=== PATIENT | female | born 1965 | race Caucasian/White ===

== ENCOUNTER 2016-05-26 21:04 | Emergency (ER) | payer OTHER ==
[~2016-05-26] VITALS: Ht 154.9 cm; Wt 79.4 kg
[~2016-05-26 21:04] MED LIST: ALPRAZOLAM0.5 M4 PO; AMOXICILLIN500 MG PO; AUGMENTIN 875 M1 TAB PO; BACTRIM DS 8001 TAB PO; BUPROPION HYDR300 M1 PO; CARAFATE 1GM1000 MG PO; CHLORDIAZEPOXID25 M3 PO; CLINDAMYCIN HY300 MG PO; CYANOCOBAL1000 MCG/2 IM; CYCLOBENZAPRINE5 M2 PO; DOCUSATE SODIU100 MG PO; DULOXETINE HCL30 MG PO; FOLIC ACID1 M1 PO; GABAPENTIN300 M1 PO; GABAPENTIN300 M2 PO; HUMALOG 100U100 U/ML SC; KEFLEX500 MG PO; LEVEMIR 10100 UNITS/ SC; LEVOTHROID0.175 MG PO; LEVOTHYROXINE0.15 M1 PO; LEVOTHYROXINE150 MCG PO; LISINOPRIL10 MG PO; LISINOPRIL30 M1 PO; LOVENOX 4040 MG/0.4 SC; METAXALONE800 M1 PO; MOTRIN800 MG PO; NEURONTIN100 MG PO; NEURONTIN300 MG PO; NOVOLOG100 U/ML SC; NUCYNTA50 M1 PO; NUCYNTA50 MG PO; OXYCODONE5 M1 PO; PERCOCET 325 MG1 TA2 PO; PRAVASTATIN40 MG PO; PRILOSEC OTC20 MG PO; PRISTIQ100 MG PO; TERBINAFINE HY250 MG PO; THIAMINE HCL100 M1 PO; TRAMADOL HCL50 MG PO; TRAZODONE HCL50 M1 PO; TRAZODONE100 MG PO; ULTRAM(MONOGRAP50 MG PO; V-GO SC; VICODIN 300 MG-1 TAB PO; VICODIN 5-3001 EACH PO; VITAMIN D1000 IU PO; XANAX1 MG PO; ZOFRAN ODT4 MG PO; ZOFRAN ODT4 MG SL
[2016-05-26 21:10] VITALS: BP 154/103
--- NOTE | 2016-05-26 21:43 | ED EAR COMPLAINT ---
History of Present Illness General Chief Complaint: Ear Complaints Stated Complaint: EAR INFECTION, WENT TO WALKIN, WORSE,CRYING Source: patient, old records Exam Limitations: no limitations Vital Signs & Intake/Output Vital Signs & Intake/Output Vital Signs Date Time Temp Pulse Resp B/P Pulse O2 O2 Flow FiO2 Ox Delivery Rate 05/26 2140 Room Air 05/26 2109 98.3 119 22 154/103 96 Room Air Allergies Coded Allergies: No Known Allergies (01/27/16) Reconcile Medications Alprazolam 0.5 MG TABLET 1 TAB PO PRN ANXIETY (Reported) Chlordiazepoxide HCl 25 MG CAPSULE 2 CAP PO Q8P ETOH 2 TABS 3 TIMES DAILY FOR 1 DAY 2 TABS 2 TIMES DAILY FOR 1 DAY 2 TABS DAILY FOR 1 DAY Cyanocobalamin (Vitamin B-12) (Cyanocobalamin Injection) 1,000 MCG/ML VIAL 1 ML IM Q30D SUPPLEMENT (Reported) Duloxetine HCl 60 MG CAPSULE.DR 1 CAP PO DAILY MENTAL HEALTH (Reported) Folic Acid 1 MG TABLET 1 TAB PO DAILY ETOH Gabapentin 300 MG CAPSULE 1 CAP PO 4 TIMES/DAY NEUROPATHY/ANXIETY (Reported) Insulin Lispro (Humalog) 100 UNIT/ML VIAL 0 SC DIABETES (Reported) HUMALOG VIA PUMP Levothyroxine Sodium 150 MCG TABLET 1 TAB PO DAILY THYROID (Reported) Lisinopril 30 MG TABLET 1 TAB PO DAILY BP (Reported) Metaxalone 800 MG TABLET 1 TAB PO TID MUSCLE SPASMS (Reported) Oxycodone HCl/Acetaminophen (Percocet 5-325 MG Tablet) 5 MG-325 MG TABLET 1 TAB PO BID PRN breakthrough pain Pravastatin Sodium (Pravastatin) 40 MG TAB 1 TAB PO AT BEDTIME HYPERCHOLESTROLEMIA (Reported) Tapentadol HCl (Nucynta) 50 MG TABLET 1 TAB PO 4 TIMES/DAY PAIN (Reported) Thiamine HCl 100 MG TABLET 1 TAB PO DAILY ETOH Trazodone HCl 50 MG TABLET 1 TAB PO PRN SLEEP (Reported) Triage Note: PT TO ED C/O RT EAR PAIN, SOBIING IN TRIAGE, IN WHEELCHAIR. DIAGNOSED AT AT WALKIN YESDTERDAY. IS TAKING AUGMENTIN. TYLENOL NOT HELPING. ALSO TOOK SOME OF "ORTHOPEDIC PAIN MEDICATION" Triage Nurses Notes Reviewed? yes Onset: Abrupt Duration: day(s): (2), constant Timing: recent history Injury Environment: home Severity: severe Severity Numbers: 10 No Modifying Factors: none Associated Symptoms: DENIES HPI: 50-year-old female presents emergency room for evaluation complaining of right ear throbbing severe pain 10 out of 10 since yesterday when she was diagnosed with a right ear infection was started on Augmentin. She's been taking Tylenol for her pain without improvement. She denies recent trauma or injury. No tinnitus no dizziness lightheadedness fever or chills no sore throat congestion rhinorrhea chest pain shortness of breath. She denies noting any rashes to her skin or scalp. No swelling to her ear no neck or throat pain. There are no modifying factors or associated symptoms otherwise Past History Travel History Traveled to [place] past 21 day No Medical History Any Pertinent Medical History? 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 No Review of Systems Review of Systems Constitutional: Reports: no symptoms, see HPI. All Other Systems: Reviewed and Negative Comments Review of systems: See HPI, All other systems negative. Constitutional, no chills no fever, no malaise no weight loss HEENT: no sore throat no congestion, ear pain Cardiovascular: No chest pain , no palpitation , Skin, no jaundice no rashes, no change in skin Respiratory: No dyspnea no cough no sputum no hemoptysis GI: No nausea no vomiting, no diarrhea, no bloating/constipation : No dysuria No hematuria, no frequency, no discharge Muscle skeletal: No joint pain, no joint swelling, no back pain, no neck pain, Neurologic: No numbness no confusion, no headache Psych: No stress Heme/endocrine: No bruising no bleeding Immunology: No lymphadenopathy, Physical Exam Physical Exam General Appearance: well developed/nourished, alert, awake Ears: Left: canal normal. Comments: Well-developed well-nourished patient in no apparent distress. Head/Face: Atraumatic, no maxillary/frontal sinus tenderness, no facial swelling Eyes: PERRL, EOMI, no conjunctival injection. No nystagmus Ear: RM EAC ERYTHEMATOUS, NO PERFORATIONLEFT External auditory canal and Tympanic membrane clear, no erythema, no FB. Nose: atraumatic.Normal inspection Throat: Moist mucous membranes.Pharynx normal. No pharyngeal erythema/exudate seen. No stridor/drooling or assymetry. No swelling or edema. Neck: Supple, no lymphadenopathy, FROM Back: FROM, Nontender Cardiovascular: Regular rate and rhythms no murmurs rubs Respiratory: No respiratory distress. Patient speaking in full complete sentences. Breath sounds clear to auscultation bilaterally: NO W/R/R Extremities: full range of motion Neuro: Alert and oriented x3 Skin: Warm & dry;No appreciable rash on exposed skin Psych: Mood affect normal, normal memory normal judgment. Progress Differential Diagnoses DIFFERENTIAL: OTITIS MEDIA, EXTERNA, MASTOIDITIS, CELLULITIS, PERFORATION, SHINGLES Plan of Care: Current Medications Sig/Regine Start time Last Medication Dose Stop Time Status Admin Oxycodone/ 1 TAB ONCE ONE 05/26 2214 UNVr Acetaminophen 05/26 2215 (Percocet) There is no rash exposed skin I discussed with her that the patient is on the correct antibiotic she is only taken one day dose. Prescription for Percocet provided for pain and advised close follow-up with ENT which was provided they feel comfortable with plan. I discussed the medications that they will receive with the patient. I gave them signs and symptoms that could indicate an adverse reaction. I have advised them to limit their activities until they can see how they respond to the medication. (SADIE ALMAZAN,MORE) Initial ED EKG: none Departure Departure Time of Disposition: 2207 Disposition: HOME OR SELF CARE Condition: Stable Clinical Impression Primary Impression: Otitis media Referrals: URBAN CARO,HILLARY (PCP/Family) Additional Instructions: Continue taking your Augmentin as prescribed. Follow-up with ear nose and throat physician dr dockery tomorrow. percocet for breakthrough pain. use caution as is a narcotic and highly addictive no driving or drinking alcohol while taking. This prescription was sent to the your pharmacy. Return anytime sooner if any concerns Departure Forms: Customer Survey General Discharge Information Prescriptions: Current Visit Scripts Oxycodone HCl/Acetaminophen (Percocet 5-325 MG Tablet) 1 TAB PO BID PRN breakthrough pain #10 TAB
[2016-05-26] MEDS ORDERED: PERCOCET 5-3251 EACH PO (22:09)
== END 2016-05-26 22:15 ==
LOC: ERH 21:04
DX: H66.91 Otitis media, unspecified, right ear (principal)

== ENCOUNTER 2016-05-29 06:59 | Inpatient (IN) | payer OTHER ==
[~2016-05-29] VITALS: Ht 154.9 cm; Wt 79.4 kg
[~2016-05-29 06:59] MED LIST changes: +PERCOCET 5-3251 EACH PO
--- NOTE | 2016-05-29 07:04 | NUR ---
PT BIBA FROM HOME WITH COMPLAINTS OF R EAR PAIN, N,V AND ONE LOOSE STOOL THIS MORNING. PT HAS BEEN ON AUGMENTIN SINCE WEDNESDAY FOR R EAR INFECTION. PT ALERT AND ORIENTED UPON ED ARRIVAL.
--- NOTE | 2016-05-29 07:51 | ED GI/GU/ABDOMINAL COMPLAINT ---
History of Present Illness General Chief Complaint: Nausea, Vomiting, Diarrhea Stated Complaint: N,V Source: patient, old records Exam Limitations: poor historian Vital Signs & Intake/Output Vital Signs & Intake/Output Vital Signs Date Time Temp Pulse Resp B/P Pulse O2 O2 Flow FiO2 Ox Delivery Rate 05/29 0940 113 20 144/91 100 Room Air 05/29 0705 98.3 109 18 164/77 99 Room Air Allergies Coded Allergies: No Known Allergies (01/27/16) Reconcile Medications Alprazolam 0.5 MG TABLET 1 TAB PO PRN ANXIETY (Reported) Chlordiazepoxide HCl 25 MG CAPSULE 2 CAP PO Q8P ETOH 2 TABS 3 TIMES DAILY FOR 1 DAY 2 TABS 2 TIMES DAILY FOR 1 DAY 2 TABS DAILY FOR 1 DAY Cyanocobalamin (Vitamin B-12) (Cyanocobalamin Injection) 1,000 MCG/ML VIAL 1 ML IM Q30D SUPPLEMENT (Reported) Duloxetine HCl 60 MG CAPSULE.DR 1 CAP PO DAILY MENTAL HEALTH (Reported) Folic Acid 1 MG TABLET 1 TAB PO DAILY ETOH Gabapentin 300 MG CAPSULE 1 CAP PO 4 TIMES/DAY NEUROPATHY/ANXIETY (Reported) Insulin Lispro (Humalog) 100 UNIT/ML VIAL 0 SC DIABETES (Reported) HUMALOG VIA PUMP Levothyroxine Sodium 150 MCG TABLET 1 TAB PO DAILY THYROID (Reported) Lisinopril 30 MG TABLET 1 TAB PO DAILY BP (Reported) Metaxalone 800 MG TABLET 1 TAB PO TID MUSCLE SPASMS (Reported) Oxycodone HCl/Acetaminophen (Percocet 5-325 MG Tablet) 5 MG-325 MG TABLET 1 TAB PO BID PRN breakthrough pain Pravastatin Sodium (Pravastatin) 40 MG TAB 1 TAB PO AT BEDTIME HYPERCHOLESTROLEMIA (Reported) Tapentadol HCl (Nucynta) 50 MG TABLET 1 TAB PO 4 TIMES/DAY PAIN (Reported) Thiamine HCl 100 MG TABLET 1 TAB PO DAILY ETOH Trazodone HCl 50 MG TABLET 1 TAB PO PRN SLEEP (Reported) Triage Note: PT BIBA FROM HOME WITH COMPLAINTS OF R EAR PAIN, N,V AND ONE LOOSE STOOL THIS MORNING. PT HAS BEEN ON AUGMENTIN SINCE WEDNESDAY FOR R EAR INFECTION. PT ALERT AND ORIENTED UPON ED ARRIVAL. Triage Nurses Notes Reviewed? yes ? n Is pt currently ? No HPI: Patient presents for evaluation of abdominal pain that began yesterday. It is an intermittent sharp pain in the periumbilical region. Nothing seems to make it better or worse. Patient states that she was evaluated at the [facility] emergency Department on Wednesday and diagnosed with an ear infection. She is currently taking Augmentin for this. She thinks the Augmentin might be affecting her. She has had nausea without associated vomiting or diarrhea. She also denies chest pain dysuria ill contacts or recent travel or rashes. She has had "a little" dyspnea over the past 2 days. The patient often states she is unable to describe how she feels specifically and often states "I can't think". She has asked repeatedly for something to drink due to a burning dry mouth. Patient also states that her earache continues. Past History Travel History Traveled to [facility] past 21 day No Medical History Any Pertinent Medical History? 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 No Review of Systems Review of Systems Constitutional: Reports: no symptoms. EENTM: Reports: see HPI. Respiratory: Reports: no symptoms. Cardiovascular: Reports: no symptoms. GI: Reports: see HPI. Genitourinary: Reports: no symptoms. Musculoskeletal: Reports: no symptoms. Skin: Reports: no symptoms. Neurological/Psychological: Reports: no symptoms. Hematologic/Endocrine: Reports: no symptoms. Immunologic/Allergic: Reports: no symptoms. All Other Systems: Reviewed and Negative Physical Exam Physical Exam Gastrointestinal: SEE BELOW Comments: Gen.: Well-nourished, well-developed, no acute respiratory distress. Uncomfortable appearing at times. Head: Normocephalic, atraumatic. Eyes: Normal inspection bilaterally Ears: Normal inspection bilaterally Nose: Normal inspection Throat/mouth : Moist mucosa Neck: Supple, full range of motion, no goiter Heart: Regular rate and rhythm, no murmurs rubs or gallops Lungs: Clear to auscultation bilaterally with normal air entry Chest: Nontender Back: Normal range of motion Abdomen: Soft, periumbilical abdominal tenderness without rebound or guarding, no palpable masses, nondistended, normal bowel sounds Extremities: Normal range of motion grossly, equal radial pulses, no cyanosis clubbing or edema Neurologic: Cranial nerves grossly intact, speech is clear Skin: warm and dry, chronic skin changes of the anterior legs bilaterally patient states secondary to diabetes Psychiatric: Calm, cooperative, no apparent delusions or hallucinations Core Measures ACS in differential dx? No Severe Sepsis Present: No Septic Shock Present: No Progress Differential Diagnosis: GASTROENTERITIS, MEDICATION SIDE EFFECT Plan of Care: Orders Procedure Date/time Status MIXED VENOUS BLOOD GAS (GEN) 05/29 1142 Active Patient Data 05/29 1141 Active Admit to inpatient 05/29 1136 Active EKG 05/29 1059 Active Add-on Test (ER Only) 05/29 0939 Active SERUM OSMOLALITY 05/29 0935 Complete ACETONE 05/29 0935 Complete C.DIFFICILE 05/29 0751 Active URINALYSIS 05/29 0751 Complete LIPASE 05/29 0751 Complete COMPREHENSIVE METABOLIC PANEL 05/29 0751 Complete CBC WITHOUT DIFFERENTIAL 05/29 0751 Complete Laboratory Tests 05/29/16 0935: Anion Gap 22 H, Estimated GFR > 60, BUN/Creatinine Ratio 22.2, Glucose 471 H, Serum Osmolality 302 H, Calcium 9.6, Total Bilirubin 0.9, AST 21, ALT 64 H, Alkaline Phosphatase 174 H, Total Protein 7.2, Albumin 4.3, Globulin 2.9, Albumin/Globulin Ratio 1.5, Lipase < 10 L, Acetone Level POSITIVE AT 1:16 DIL 05/29/16 0840: Urinalysis LIGHT H, Urine Color YEL, Urine Clarity CLEAR, Urine pH 6.0, Ur Specific [place] >= 1.030, Urine Protein TRACE H, Urine Ketones >=80, Urine Nitrite NEG, Urine Bilirubin NEG, Urine Urobilinogen 0.2, Ur Leukocyte Esterase NEG, Ur Microscopic SEDIMENT EXAMINED, Urine RBC RARE, Urine WBC RARE, Ur Epithelial Cells MOD H, Hyaline Casts RARE H, Urine Mucus RARE, Urine Hemoglobin MOD H, Urine Glucose >=1000 H 05/29/16 0740: CBC w Diff NO MAN DIFF REQ, RBC 5.03, MCV 82.3, MCH 26.9 L, RDW 16.9 H, MPV 8.9, Gran % 88.2 H, Lymphocytes % 8.6 L, Monocytes % 2.7, Eosinophils % 0, Basophils % 0.5, Absolute Granulocytes 10.9 H, Absolute Lymphocytes 1.1 L, Absolute Monocytes 0.3, Absolute Eosinophils 0, Absolute Basophils 0.1, PUBS MCHC 32.7 L Microbiology 05/29 0751 STOOL: Clostridium difficile Toxin A & B - ORD Initial ED EKG: no ST T wave changes, sinus tachycardia with a ventricular rate of 110 Comments: 05/29/2016 9:43:27 AM although the patient's chemistries aren't back her urinalysis shows glucose and ketones. I suspect DKA. IV fluids are infusing. Patient updated. 05/29/2016 11:48:13 AM patient's case discussed with Dr. Pittman, patient will be admitted to the intensive care unit for DKA. We have discussed the patient's potassium level and its likely response to insulin and fluids. Departure Departure Disposition: STILL A PATIENT Condition: Stable Clinical Impression Primary Impression: DKA (diabetic ketoacidoses) Qualifiers: Diabetes mellitus type: type 1 Diabetes mellitus complication detail: without coma Qualified Code: E10.10 - Type 1 diabetes mellitus with ketoacidosis without coma Secondary Impressions: Hyperkalemia Hyponatremia Otitis externa of right ear Qualifiers: Otitis externa type: swimmer's ear Chronicity: acute Qualified Code : H60.331 - Swimmer's ear, right ear Referrals: HILLARY DUGGAN MD (PCP/Family) Departure Forms: Customer Survey General Discharge Information Admission Note Spoke With: Robe NIELSON MD Documentation of Exam: Documentation of any treatments & extenuating circumstances including Concerns Regarding Discharge (functional status, medication knowledge or non-compliance, living conditions, etc.) that warrant an admission rather than observation: Patient is experiencing acute DKA with hyponatremia and hyperkalemia and acidosis. She cannot be treated safely as an outpatient now requires intensive care with an IV insulin drip and close monitoring of vital signs potassium levels and blood glucose. In addition she is experiencing a right otitis media that should be treated with either PO antibiotics or antibiotic drops into the canal. Given the extent of the patient's DKA and complicating ear infection I suspect she will require a multiple day hospitalization. Critical Care Note Critical Care Note Critical Care Time: 30-74 min
[2016-05-29 08:01] LABS: ABSOLUTE BASOPHIL COUNT 0.1 /CUMM (0.0-0.2); ABSOLUTE EOSINOPHIL COUNT 0 /CUMM (0.0-0.7); ABSOLUTE GRANULOCYTE CT 10.9 /CUMM (1.4-6.5); ABSOLUTE LYMPH COUNT 1.1 /CUMM (1.2-3.4); ABSOLUTE MONOCYTE COUNT 0.3 /CUMM (0.10-0.60); BASOPHIL % 0.5 % (0.0-2.0); EOSINOPHIL % 0 % (0-5); HEMATOCRIT 41.4 % (37-47); MEAN CORPUSCULAR HGB 26.9 PG (27.0-31.0); MEAN CORPUSCULAR HGB CONC 32.7 G/DL (33.0-37.0); MEAN CORPUSCULAR VOLUME 82.3 FL (81.0-99.0); MEAN PLATELET VOLUME 8.9 FL (7.4-10.4); RBC DISTRIBUTION WIDTH 16.9 % (11.5-14.5); RED BLOOD CELL CT 5.03 /CUMM (4.20-5.40); WHITE BLOOD CELL COUNT 12.4 /CUMM (4.8-10.8)
--- NOTE | 2016-05-29 08:02 | NUR ---
PT CONTINUING TO ASKING REPEATIVELY FOR "I NEED SOMETHING TO DRINK". DR LOUIS IN TO EVAL, PT TO STAY NPO AT THIS TIME, DUE TO NAUSEA AND C/O ABD PAIN. BLOODWORK SST,BLUE,LAV,SEQUEIRA AND PINK TOP TUBES SENT TO LAB. MED WITH PHENERGAN 12.5MG IV AND IVF'S NS 1L BOLUS INFUSING WITHOUT DIFFICULTY AT THIS TIME. PT AWARE OF NEED FOR URINE SPECIMEN AND STOOL SPECIMEN WHEN ABLE TO PROVIDE.
[2016-05-29 08:13] LABS: GRANULOCYTE % 88.2 % (42.2-75.2); PLATELET COUNT 478 /CUMM (130-400)
--- NOTE | 2016-05-29 09:37 | NUR ---
REDRAW OF SST AND SEQUEIRA DRAWN AND SENT TO LAB.
--- NOTE | 2016-05-29 09:55 | NUR ---
NEED REDRAW OF SST. LAB ASKED TO COME AND DRAW PT.
--- NOTE | 2016-05-29 10:19 | NUR ---
CRITICAL TEST RESULTS [id number] NIMCO VALDEZ 50 F TESTS AND RESULTS: POTASSIUM: 6.2, CO2: 6 Results received and read back by: DEONDRE TEMPLETON Results received date and time: 05/29/16 1019 The following provider was notified of the results, and read the results back: DR LOUIS. Notified date and time: 05/29/16 at 1019
--- NOTE | 2016-05-29 10:21 | NUR ---
PT ASKING FOR SOMETHING FOR RIGHT EAR PAIN, DR LOUIS AWARE. PARENTS NOW AT BEDSIDE.
--- NOTE | 2016-05-29 10:30 | NUR ---
PT TAKING 2 CUPS OF ICE CHIPS NO FURTHER VOMITING NOTED.
--- NOTE | 2016-05-29 10:49 | NUR ---
PT WITH MULTIPLE COMPLAINTS, DR LOUIS AWARE.
--- NOTE | 2016-05-29 11:40 | NUR ---
MED WITH REGULAR INSULIN 10 UNITS SC, INSULIN DRIP: 100 UNITS REGULAR INSULIN IN 100ML NS AT 5UNITS/HR=5ML/HR ORDERED, PT REMOVED OMNI INSULIN FROM OUTER UPPER LEFT THIGH. PT ASSIST TO BEDSIDE COMMODE, WITH MINIMAL ASSIST, TOLERATED VERY WELL.
[2016-05-29] MEDS ORDERED: CHLORDIAZEPOXID25 M3 PO (11:54)
--- NOTE | 2016-05-29 12:40 | NUR ---
HOUSE STAFF AT BEDSIDE FOR EVAL. ACCCHECK: [id number] HOUSE STAFF AWARE, IVF'S NS 1L BOLUS # 2 INFUSING ORDERED, INSULIN DRIP CONTINUES AT 5 UNITS/5ML/HR.
--- NOTE | 2016-05-29 12:50 | NUR ---
MED WITH ZOFRAN 4MG IV FOR RETURNING C/O NAUSEA, MED WITH MORPHINE 2MG IV FOR C/O "ALL OVER BODY ACHES". PARENTS REMAIN AT BEDSIDE. AWAITING ICU BED ASSIGNMENT.
--- NOTE | 2016-05-29 13:01 | History & Physical ---
IBAN CARO,[facility] 05/29/16 1259: General Information and HPI MD Statement: I have seen and personally examined NIMCO GRULLON and documented this H&P. The patient is a 50 year old F who presented with a patient stated chief complaint of [dominant pain and right ear pain]. Source of Information: patient, family, old records Exam Limitations: no limitations History of Present Illness: 50/F with PMH DM (on insulin pump) complicated by Neuropathy, HTN, HLD, depression and alcohol abuse (last drink was ) who presented to [facility] earlier today complaining of epigastric abdominal pain that started yesterday. She was seen in the walk in clinic 3 days ago because of throbbing, 12/10, right ear pain. She was diagnosed as otitis media and sent home on Augmentin. The day after that she came to [facility] ED and she was told to continue same Augmentin dose. Patient reported that because of her sickness she was not eating well and for that reason she was not taking daily insulin dose to avoid hypoglycemia. Patient reported that for the last 4 days her sugar has been running around 300.\\ She reported right ear pain, ear discharge, decreased hearing. Patient also reported epigastric abdominal pain, that feel as a burning and radiated to substernal. She started to have this burning sensation after she threw up on bloody yellow fluid in the ED. complaint of fever and throat pain however denies chills, cough, chest pain, or nasal drip. Allergies/Medications Allergies: Coded Allergies: No Known Allergies (01/27/16) Home Med list Chlordiazepoxide HCl 25 MG CAPSULE 2 CAP PO Q8P ETOH 2 TABS 3 TIMES DAILY FOR 1 DAY 2 TABS 2 TIMES DAILY FOR 1 DAY 2 TABS DAILY FOR 1 DAY Cyanocobalamin (Vitamin B-12) (Cyanocobalamin Injection) 1,000 MCG/ML VIAL 1 ML IM Q30D SUPPLEMENT (Reported) Duloxetine HCl 30 MG CAPSULE.DR 3 CAP PO DAILY MENTAL HEALTH (Reported) Gabapentin 300 MG CAPSULE 1 CAP PO 4 TIMES/DAY NEUROPATHY/ANXIETY (Reported) Insulin Lispro (Humalog) 100 UNIT/ML VIAL 0 SC DIABETES (Reported) HUMALOG VIA PUMP Levothyroxine Sodium 150 MCG TABLET 1 TAB PO DAILY THYROID (Reported) Lisinopril 30 MG TABLET 1 TAB PO DAILY BP (Reported) Pravastatin Sodium (Pravastatin) 40 MG TAB 1 TAB PO AT BEDTIME HYPERCHOLESTROLEMIA (Reported) Tapentadol HCl (Nucynta) 50 MG TABLET 1 TAB PO 4 TIMES/DAY PAIN (Reported) Past History Travel History Traveled to [place] past 21 day No Medical History Neurological: peripheral neuropathy (lower extremities), PERIPHERAL NEUROPATHY Cardiovascular: hypertension Gastrointestinal: constipation Hepatic: LIVER ABCESS Renal: NONE Musculoskeletal: fracture, osteoarthritis, psoariatic arthritis, R SHOULDER, osteomyelitis of the left fifth toe s/p rt ankle fx/screws s/p rt shoul fx/surg Psychiatric: chronic pain disorder, insomnia Endocrine: diabetes, hypothyroidism Blood Disorders: anemia Cancer(s): NONE 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 History of MRSA: No History of VRE: No History of CDIFF: No Surgical History Surgical History: cholecystectomy, status post gastric bypass surgery 2004 status post right shoulder surgery with hardware in place right ankle screws right shoulder screws Past Family/Social History Family History Relations & Conditions if any MOTHER FH: HTN (hypertension) FH: type 2 diabetes mellitus Psychosocial History Services at Home: None Primary Language: [place] Island[place] ETOH Use: denies use Illicit Drug Use: denies illicit drug use Functional Ability ADLs Independent: dressing, eating, toileting, bathing. Ambulation: independent IADLs Independent: shopping, housework, finances, food prep, telephone, transportation , medication admin. Review of Systems Review of Systems Constitutional: Reports: fever. Denies: chills, diaphoresis, malaise, weakness. EENTM: Reports: ear discharge, ear pain, hearing changes. Denies: blurred vision. Cardiovascular: Denies: chest pain, orthopena, palpitations, syncope. Respiratory: Denies: cough, short of breath, sputum production, wheezing. GI: Reports: abdominal pain, nausea, vomiting. Denies: bloating, constipation, diarrhea, distention. Genitourinary: Denies: dysuria. Skin: Denies: rash. Exam & Diagnostic Data Last 24 Hrs of Vital Signs/I&O Vital Signs Date Time Temp Pulse Resp B/P Pulse O2 O2 Flow FiO2 Ox Delivery Rate 05/29 1554 116 20 136/65 100 Room Air 05/29 1450 117 18 171/79 99 05/29 1447 98.9 117 18 181/81 05/29 1435 117 18 181/81 99 Room Air 05/29 1242 98.9 122 20 180/84 100 Room Air 05/29 0940 113 20 144/91 100 Room Air 05/29 0705 98.3 109 18 164/77 99 Room Air Intake & Output 05/29 1600 05/29 0800 05/29 0000 Intake Total 1000 0 Output Total Balance 1000 0 Intake, IV 1000 Intake, Oral 0 Patient 79.379 kg Weight Physical Exam General Appearance Alert, Oriented X3, Cooperative, No Acute Distress Skin No Rashes HEENT Atraumatic, PERRLA, EOMI, Mucous Membr. moist/pink, right ear tympanic membrane is covered with-yellow pus.right ear auricle is tenderness to touch.eft ear is full of wax tympanic membrane cannot be seen Neck No JVD Cardiovascular Regular Rate, Normal S1, Normal S2, No Murmurs Lungs Clear to Auscultation, Normal Air Movement Abdomen Soft, No Tenderness Neurological Normal Speech Extremities No Clubbing, No Cyanosis, No Edema Last 24 Hrs of Labs/Tex: Laboratory Tests 05/29/16 1745: Anion Gap 14, Estimated GFR > 60, Glucose 248 H, Calcium 9.0, Phosphorus 2.2 L , Magnesium 1.8, Total Bilirubin 0.6, AST 15, ALT 54 H, Albumin 3.3 L 05/29/16 1730: Sodium Cancelled, Potassium Cancelled, Chloride Cancelled, Carbon Dioxide Cancelled, Anion Gap Cancelled, BUN Cancelled, Creatinine Cancelled, Glucose Cancelled, Calcium Cancelled, Phosphorus Cancelled, Magnesium Cancelled, Total Bilirubin Cancelled, AST Cancelled, ALT Cancelled, Albumin Cancelled 05/29/16 1510: Anion Gap 19 H, Estimated GFR > 60, Glucose 329 H, Calcium 9.4, Phosphorus 2.6 , Magnesium 1.9, Total Bilirubin 0.5, AST 18, ALT 56 H, Albumin 3.9 05/29/16 0935: Anion Gap 22 H, Estimated GFR > 60, BUN/Creatinine Ratio 22.2, Glucose 471 H, Serum Osmolality 302 H, Calcium 9.6, Total Bilirubin 0.9, AST 21, ALT 64 H, Alkaline Phosphatase 174 H, Total Protein 7.2, Albumin 4.3, Globulin 2.9, Albumin/Globulin Ratio 1.5, Lipase < 10 L, Acetone Level POSITIVE AT 1:16 DIL 05/29/16 0840: Urinalysis LIGHT H, Urine Color YEL, Urine Clarity CLEAR, Urine pH 6.0, Ur Specific [place] >= 1.030, Urine Protein TRACE H, Urine Ketones >=80, Urine Nitrite NEG, Urine Bilirubin NEG, Urine Urobilinogen 0.2, Ur Leukocyte Esterase NEG, Ur Microscopic SEDIMENT EXAMINED, Urine RBC RARE, Urine WBC RARE, Ur Epithelial Cells MOD H, Hyaline Casts RARE H, Urine Mucus RARE, Urine Hemoglobin MOD H, Urine Glucose >=1000 H 05/29/16 0740: CBC w Diff NO MAN DIFF REQ, RBC 5.03, MCV 82.3, MCH 26.9 L, RDW 16.9 H, MPV 8.9, Gran % 88.2 H, Lymphocytes % 8.6 L, Monocytes % 2.7, Eosinophils % 0, Basophils % 0.5, Absolute Granulocytes 10.9 H, Absolute Lymphocytes 1.1 L, Absolute Monocytes 0.3, Absolute Eosinophils 0, Absolute Basophils 0.1, PUBS MCHC 32.7 L Microbiology 05/29 1800 HEAD/NECK: Head/Neck Culture - RECD 05/29 1800 HEAD/NECK: Gram Stain - RECD 05/29 1719 URINE ROUT: Urine Culture - COLB 05/29 1719 BLOOD: Blood Culture - COLB 05/29 1719 BLOOD: Blood Culture - COLB 05/29 1630 UPPER RESP: Surveillance Culture - RECD 05/29 1630 GI: Surveillance Culture - RECD 05/29 0751 STOOL: Clostridium difficile Toxin A & B - ORD Assessment/Plan Assessment: 50/F with PMH of Hypothyroidism, HTN, HLD, depression, hx of alcohol abuse, and DM for which she is on insulin pump, who presented with symptoms and signs suggestive of DKA and otitis media. A&P 1.Otitis Media: As mentioned in the history, She has few days history of otitis Media that failed out patient treatment with Augmentin and most likely complicated her DM with DKA. on the other hand, her uncontrolled DM increase her risk of Malignant or Necrotizing otitis externa. The combination of DKA and refractory ear infection make this patient a Critically ill patient. So to better address her ear infection the following will be done * Head CT Scan W IV contrast will be done to assess the extension of infection. * IV Abx that cover Pseudomonas aeruginosa will be started. * Stevesn culture including ear discharge. * Chest Xray will be ordered. * IV Morphine, IV Acetaminophen(Tylenol) will be used to manage pain * IV Ondansetron(Zofran) PRN for nausea * ENT will be Emergently consulted. 2.DKA: patient diabetic and is on insulin Pump. The presence of sever ear infection disrupt and worsen the control of her diabetes M. She presented with picture fits DKA. To make sure she received effective treatment and to establish a good, fair blood glucose control, her Regional Psychiatric Director will be consulted. The plan to treat her DKA is the following. * Patient will be monitored in the ICU * Insulin drip @5 units is already started, we'll check FSG hourly and titrate accordingly * IV NS fluid is Given as bolus, once glucose level is <250 she will be switched to IV D51/2NS @ 150ml/h * For Hyperkalemia, IV calcium gluconate will be given, once K <5.2 a potassium will be added to the IV fluid. * will repeat ICU bundle every 4-6 hours. * Regional Psychiatric Director was consulted Stable conditions 3.Hypothyroidism, HTN, HLD, peripheral neuropathy Depression: * home dose of synthroid 150mcg wednesday-wednesday and 75mcg on wednesday will be continued.Hypothyroidism * pravastatin 40mg QPM PO will be given.HLD * Gabapentin 300 mg Q6 PO will be given.Neuropathy * Duloxetine 90mg daily PO will be given.Depression& neuropathy * Lisinopril 30 mg daily po will be given.HTN FC NPO dvt ppx.[email or web address] As Ranked By This Provider Problem List: 1. Otitis media 2. DKA (diabetic ketoacidoses) Qualifiers Diabetes mellitus type: type 1 Diabetes mellitus complication detail: without coma Qualified Code: E10.10 - Type 1 diabetes mellitus with ketoacidosis without coma Core Measures/Miscellaneous Acute Coronary Syndrome ACS Diagnosis: No Cerebrovascular Accident CVA/TIA Diagnosis: No Congestive Heart Failure CHF Diagnosis: No Venous Thromboembolism VTE Risk Factors: Acute medical illness, Age > 40 VTE Prophylaxis Ordered Inpt: Mech & Pharm No Mech VTE prophylaxis d/t: No contraindications No VTE Pharm Prophylaxis d/t: No contraindications VTE Diagnosis: No VTE Type: NONE VTE Confirmed by (Test): NONE Severe Sepsis Severe Sepsis Present: No Septic Shock Septic Shock Present: No Miscellaneous Documentation Attending Case Discussed With: CHUCKY SHAH MD Primary Care Physician: HILLARY DUGGAN MD Patient sees these Specialists HILLARY DUGGAN MD Level of Patient Care: Critical Care (CRI) VISHNU PIERCE 05/29/16 1325: Resident Review Statement Resident Statement: examined this patient, discussed with risk intern, agreed with risk intern, discussed with nursing Other Findings: Ms. Grullon is a 50 year old female w a PMH of DM (on insulin pump) - two previous DKA episodes and multiple hypoglycemic episodes, hypothyroidism, s/p gastric bypass surgery, psoriasis, chronic pain (on Nucenta) and HTN who presents to the ED with c/o abdominal pain. She was recently evaluated in the ED 2 days with complaints of right ear throbbing severe pain and a day prior to that in a walk in clinic, for which she was given augmentin for a "middle ear infection". The patient states she has not been taking her insulin for the last 3-4 days out of fear that she will have a hypoglycemic episodes. She states her FSGs have been running in the 300s. ROS is positive for abdominal pain, acidic in nature in the epigastric area radiating up to her throat. She complains of nausea with 2 episodes of vomitting. She also complains of a subjective fever, denies chill. She still complains of severe right ear pain with some weaping. Physical Exam: agree with above - very tender R ear to touch - otoscopic exam revealed white/yellow granulation in the external canal. Patient was unable to comply w the rest of the exam for full TM inspection. Remainder of the exam bengin except for some LE scarring from an infection/debridement 30years ago. Problem list/Assessment and Plan DKA * Most likely 2/2 non compliance w insulin regimen and infection * Admit the patient to the ICU * Currently on an insulin drip @5 units - blood sugar was 471 on admission with positive urine 1:16 ketones, AG of 22, Bicarb of 6. Serum Osm 302 * We will continue insulin drip and check FSG hourly and titrate accordingly * We will also bolus 3L more as she has only recieved 1L * Consider maintenance fluid @125 afterwarsd * K is now 6.2 with peaked T waves in V2, we will give calcium gluconate for cardiac membrane stabilization and repeat EKG at * Consider adding K to her fluids once K drops <5.2 * Also consider adding dextrose once glucose drops <250 * We will repeat labs now and at 1530 to monitor HCO3- and AG Otitis Media * Pt has been on augmentin * CHCF: strep, hemophilis and moraxella * She has a small white count elevation @ 12.4 * We will obtain blood cultures and start ceftriaxone 1g daily * Given the severity of her pain, consider head CT for ?mastoid/temporal involvement and possibly and ENT consult Hypothyroidism * Continue home dose of synthroid 150mcg wednesday-wednesday and 75mcg on wednesday. * TSH was WNL 0.360 five months ago HTN * Continue home meds FC NPO pain path tylenol PO, IV and morhine for severe lovenox for dvt ppx NISREEN CARO,[facility] 05/29/16 1453: Attending MD Review Statement Attending Statement Attending MD Statement: examined this patient, discuss w/resident/PA/PARTS COUNTERMAN, agreed w/resident/PA/PARTS COUNTERMAN, discussed with family, reviewed EMR data (avail), reviewed images, amended to note Attending Assessment/Plan: I have personally seen and examined the patient and agree with the resident's assessment as above. Briefly, the patient is a 50-year-old female with a past medical history significant for insulin-dependent diabetes noting that she is on an insulin pump at home. Her diabetes is Okay by neuropathy. She also has hypertension, hyperlipidemia, depression and alcohol abuse. The patient reports that she developed significant right ear pain and a right ear infection recently and was placed on Augmentin. She was not taking her insulin as she was fearful of becoming hypoglycemic. She presented to the emergency department earlier today complaining of epigastric pain that was ongoing for 24 hours. The patient was evaluated in emergency department and found to be in DKA. She was placed on an insulin drip and has been given IV fluids. Endocrinology has been consulted. The plan will be to continue the insulin drip until the anion gap is closed. We will continue IV fluid hydration. We'll monitor labs every 3-4 hours. The patient will be pancultured and started on Zosyn for her ear infection. We will check a CT scan of the head. We will culture the right ear. We will consult ENT for recommendations. We will provide the patient with medications for pain. She will continue to be monitored in the critical care unit until her metabolic acidosis resolves.
--- NOTE | 2016-05-29 13:21 | NUR ---
PT IS GOING TO 103
--- NOTE | 2016-05-29 13:30 | NUR ---
REPEAT ACCUCHECK: 389, PT SLEEPING COMFORTABLY AT THIS TIME.
--- NOTE | 2016-05-29 14:15 | NUR ---
BED 103
[2016-05-29 14:30] VITALS: BP 136/70
--- NOTE | 2016-05-29 14:48 | NUR ---
IV CALCUIM TOLERATED WELL. NO NAUSEA AT THIS TIME, MED WITH LISINOPRIL 30MG PO WITH A FEW SIPS OF ICE WATER, ALSO MED WITH LOVENOX 40MG SC, TOLERATED WELL. REPEAT ACCUCHECK: 375
--- NOTE | 2016-05-29 14:58 | Cons- Endocrinology ---
General Information and HPI Consulting Request Date of Consult: 05/29/16 Requested By: ICU team Reason for Consult: management of DKA Source of Information: patient, family, old records Exam Limitations: no limitations History of Present Illness: 50 y/o female, hx of DM type 1 on Omnipod insulin pump, hypothyroidism, presented with right ear pain, feeling weak since Wednesday. In ER, blood work showed glucose 471, bicarb 6, K 6.2 and AG 22. At this point, she is receivng the second liter of NS, insulin drip at 5 units per hour. Insulin pump was discontinued. The most recent FSG was 375. Her insulin pump settings: Basal rate: 0.8 units per hour; IC ratio 12 grams insulin sensitivity 50 mg/dl target 90-120 mg/dl active insulin time 4 hours She was on Synthroid 150 mcg x 6 days per week and 75 mcg once a week on Wednesday. Allergies/Medications Allergies: Coded Allergies: No Known Allergies (01/27/16) Home Med List: Amoxicillin/Potassium Clav (Augmentin 875-125 Tablet) 875 MG-125 MG TABLET 1 TAB PO BID ear infection Cyanocobalamin (Vitamin B-12) (Cyanocobalamin Injection) 1,000 MCG/ML VIAL 1 ML IM Q30D SUPPLEMENT (Reported) Duloxetine HCl 30 MG CAPSULE.DR 3 CAP PO DAILY MENTAL HEALTH (Reported) Gabapentin 300 MG CAPSULE 1 CAP PO 4 TIMES/DAY NEUROPATHY/ANXIETY (Reported) Insulin Lispro (Humalog) 100 UNIT/ML VIAL 0 SC DIABETES (Reported) HUMALOG VIA PUMP Levothyroxine Sodium 150 MCG TABLET 1 TAB PO DAILY THYROID (Reported) Lisinopril 30 MG TABLET 1 TAB PO DAILY BP (Reported) Neomycin/Polymyxin B Sulf/Hc (Nccdijvm-Ufbqkdyvj-Of Ear Susp) 3.5 MG/ML-10,000 UNIT/ML-1 % DROPS.SUSP 4 GTT OTIC Q8 ear infection Pravastatin Sodium (Pravastatin) 40 MG TAB 1 TAB PO AT BEDTIME HYPERCHOLESTROLEMIA (Reported) Tapentadol HCl (Nucynta) 50 MG TABLET 1 TAB PO 4 TIMES/DAY PAIN (Reported) Review of Systems Review of Systems Constitutional: Reports: see HPI, malaise, weakness. EENTM: Reports: ear pain (right). Cardiovascular: Reports: palpitations. Respiratory: Denies: short of breath. GI: Reports: abdominal pain (epigastric area). Genitourinary: Denies: dysuria. Hematologic/Endocrine: Denies: polyuria, polydipsia. 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 Ambulation: independent IADLs Independent: shopping, housework, finances, food prep, telephone, transportation , medication admin. Exam & Diagnostic Data Last 24 Hrs of Vital Signs/I&O Vital Signs Date Time Temp Pulse Resp B/P Pulse O2 O2 Flow FiO2 Ox Delivery Rate 05/29 1447 98.9 117 18 181/81 05/29 1435 117 18 181/81 99 Room Air 05/29 1242 98.9 122 20 180/84 100 Room Air 05/29 0940 113 20 144/91 100 Room Air 05/29 0705 98.3 109 18 164/77 99 Room Air Intake & Output 05/29 1600 05/29 0800 05/29 0000 Intake Total 1000 0 Output Total Balance 1000 0 Intake, IV 1000 Intake, Oral 0 Patient 175 lb Weight Physical Exam General Appearance: mild distress Ears, Nose, Throat: abnormal Tympanic (R) Neck: normal inspection Respiratory: lungs clear Cardiovascular: tachycardia Gastrointestinal: soft, tenderness (at epigastric area) Extremities: no edema Labs/Tex Results: Laboratory Tests 05/29 0935 Chemistry Sodium (137 - 145 mmol/L) 126 L Potassium (3.5 - 5.1 mmol/L) 6.2 *H Chloride (98 - 107 mmol/L) 98 Carbon Dioxide (22 - 30 mmol/L) 6 *L Anion Gap (5 - 16) 22 H BUN (7 - 17 mg/dL) 20 H Creatinine (0.5 - 1.0 mg/dL) 0.9 Estimated GFR (>60 ml/min) > 60 BUN/Creatinine Ratio (7 - 25 %) 22.2 Glucose (65 - 99 mg/dL) 471 H Serum Osmolality (285 - 295 MOSM/KG) 302 H Calcium (8.4 - 10.2 mg/dL) 9.6 Total Bilirubin (0.2 - 1.3 mg/dL) 0.9 AST (14 - 36 U/L) 21 ALT (9 - 52 U/L) 64 H Alkaline Phosphatase (<127 U/L) 174 H Total Protein (6.3 - 8.2 g/dL) 7.2 Albumin (3.5 - 5.0 g/dL) 4.3 Globulin (1.9 - 4.2 gm/dL) 2.9 Albumin/Globulin Ratio (1.1 - 2.2 %) 1.5 Lipase (23 - 300 U/L) < 10 L Toxicology Acetone Level (NEGATIVE) POSITIVE AT 1:16 DIL 05/29 05/29 0840 0740 Hematology CBC w Diff NO MAN DIFF REQ WBC (4.8 - 10.8 /CUMM) 12.4 H RBC (4.20 - 5.40 /CUMM) 5.03 Hgb (12.0 - 16.0 G/DL) 13.5 Hct (37 - 47 %) 41.4 MCV (81.0 - 99.0 FL) 82.3 MCH (27.0 - 31.0 PG) 26.9 L RDW (11.5 - 14.5 %) 16.9 H Plt Count (130 - 400 /CUMM) 478 H MPV (7.4 - 10.4 FL) 8.9 Gran % (42.2 - 75.2 %) 88.2 H Lymphocytes % (20.5 - 51.1 %) 8.6 L Monocytes % (1.7 - 9.3 %) 2.7 Eosinophils % (0 - 5 %) 0 Basophils % (0.0 - 2.0 %) 0.5 Absolute Granulocytes (1.4 - 6.5 /CUMM) 10.9 H Absolute Lymphocytes (1.2 - 3.4 /CUMM) 1.1 L Absolute Monocytes (0.10 - 0.60 /CUMM) 0.3 Absolute Eosinophils (0.0 - 0.7 /CUMM) 0 Absolute Basophils (0.0 - 0.2 /CUMM) 0.1 PUBS MCHC (33.0 - 37.0 G/DL) 32.7 L Urines Urinalysis LIGHT H Urine Color (YEL,AMB,STR) YEL Urine Clarity (CLEAR) CLEAR Urine pH (5.0 - 8.0) 6.0 Ur Specific [place] (1.001 - 1.035) >= 1.030 Urine Protein (NEG,<30 MG/DL) TRACE H Urine Ketones (NEG) >=80 Urine Nitrite (NEG) NEG Urine Bilirubin (NEG) NEG Urine Urobilinogen (0.1 - 1.0 EU/dl) 0.2 Ur Leukocyte Esterase (NEG) NEG Ur Microscopic SEDIMENT EXAMINED Urine RBC (0 - 5 /HPF) RARE Urine WBC (0 - 2 /HPF) RARE Ur Epithelial Cells (NONE,FEW) MOD H Hyaline Casts (0/LPF) RARE H Urine Mucus (FEW,NONE) RARE Urine Hemoglobin (NEG) MOD H Urine Glucose (N MG/DL) >=1000 H Assessment/Plan Assessment/Plan 50 y/o female, hx of DM type 1 on Omnipod insulin pump, hypothyroidism, presented with right ear pain, feeling weak since Wednesday. She was admitted for DKA and right ear infection. 1. consider ENT consult; 2. with regards to DM/ DKA management: --- continue the current IVF and insulin drip for now; --- monitor FSGs every one hour and then adjust her insulin drip rate accordingly; ---repeat electrolytes at 2 pm and then 4-6 hours and then adjust IVF accordingly; ---recommend adding K to IVF if her repeat K isless than 5.1; ---recommend adding dextrose to her IVF if her glucose level is less than 250; ---continue the other supportive management. 3. continue Levothyroxine 150 mcg daily for now; monitor her TSH and free T4 tomorrow. please call endocrine if there is any questions. Consult Acknowledgment - Thank you for your consult request.
--- NOTE | 2016-05-29 15:15 | NUR ---
ASSUMED CARE OF PT. IV PLACED BY ALTHEA RN, ICU BUNDLE LABS SENT
--- NOTE | 2016-05-29 15:51 | NUR ---
PT MEDICATED FOR EAR PAIN WITH MORPINE. GLUCOSE CHECKED AND IS 299. INSULIN GTT INFUSING AT 5UNITS/HR
--- NOTE | 2016-05-29 16:08 | NUR ---
REPORT CALLED TO [facility]. FLU SWAB OBTAINED PRIOR TO LEAVING ED
--- NOTE | 2016-05-29 17:55 | RADIOLOGY REPORT ---
EXAMINATION: XR PORTABLE CHEST CLINICAL INFORMATION: Left-sided throat pain. Otitis media. COMPARISON: 12/18/2014 TECHNIQUE: Portable AP view of the chest was obtained. FINDINGS: The cardiomediastinal silhouette is normal. Lung volumes are low. No evidence of consolidation, pulmonary edema, pleural effusion, or pneumothorax. Mild degenerative changes of the spine are difficult to visualize due to technique. There is a screw across the right humeral head, stable. No acute osseous abnormalities are evident. IMPRESSION: Low lung volumes without acute abnormality identified.
--- NOTE | 2016-05-29 19:38 | CT SCAN REPORT ---
EXAMINATION: CT HEAD WITHOUT AND WITH CONTRAST CLINICAL INFORMATION: Severe right-sided ear pain. COMPARISON: None. TECHNIQUE: Contiguous axial imaging was performed from the skull base to vertex before and after the administration of 100 mL of Optiray 320 intravenous contrast. DLP: 1129 mGy-cm. FINDINGS: No acute intracranial abnormality. No acute intracranial hemorrhage, mass or mass effect or abnormal extra-axial fluid collections. The density within the dural venous sinuses is within normal limits. The ventricles are normal in size, without hydrocephalus. There are no focal areas of hypoattenuation within a vascular distribution to suggest acute transcortical ischemia. The basilar cisterns are patent. There is no abnormal attenuation of the brain parenchyma. No acute calvarial abnormality is identified. Soft tissues appear unremarkable. There is mild patchy opacification of several right posterior mastoid air cells. No cortical destruction or periosteal reaction of the right temporal bone is identified. Incidental note is made of a soft tissue opacity within the right external auditory canal, likely financial sales representative of cerumen. There is questionable minimal fluid within the right middle ear (series 5, image 13). IMPRESSION: 1. Patchy opacification of several right posterior mastoid air cells. This finding is entirely nonspecific but could reflect a mild acute mastoiditis. No cortical erosions or cortical destruction of the right temporal bone is identified. 2. There is questionable minimal fluid within the right middle ear, which may represent a developing right-sided otitis media. Correlate with direct visualization. 3. Soft tissue density within the right external auditory canal likely represents cerumen. Correlate with direct visualization.
--- NOTE | 2016-05-29 20:39 | NUR ---
PT A/OX3, FOLLOWS COMMANDS. C/O RT EAR AND NECK PAIN-DESCIBES STABBING, RATES 8 OUT OF 10 AT PRESENT-SEE EMAR FOR PAIN MED ADMINISTRATION. BREATH SOUNDS CLEAR THOUGHOUT BILATERALLY. NO COUGH, SOB OR RESP DISTRESS NOTED AT PRESENT. SEE FLOW SHEET FOR VS, 02 SATS, I/O'S. MONITOR SHOWS ST, NO ECTOPY NOTED AT PRESENT. BP STABLE AT PRESENT. ABD SOFT, NONTENDER, NONDISTENDED, POSITIVE BOWEL SOUNDS. VOIDING. SKIN INTACT. ON INSULIN GTT AT 5UNITS/HR AT PRESENT. ON Q1 ACCUCHECKS
--- NOTE | 2016-05-29 20:57 | NUR ---
1630 PATIENT ARRIVED TO ROOM 103 VIA STRETCHER ACCOMPANIED BY JANIS BROWN, PATIENT ORIENT TO ROOM AND UNIT, PLACED ON ICU MONITORS, A&OX3, AFEBRILE,F.S. 241, C/O 8/10 PAIN TO RIGHT EAR, WEAK, MOANING, WEEPY; INSULIN GTT MAINTAINED AT 5 UNITS/HOUR 3RD N/S BOLUS INFUSING ST 109, BP 136/70, DENIES CP, PALPITATIONS;RA CLEAR LUNG SOUNDS; NO C/O OF NAUSEA, DENIES PAIN IN ABD, TOLERATING ICE CHIPS AND SIPS OF H2O WITH MEDS;NPO; SKIN INTACT, NO EDEMA, PSORIASIS RASH ON B/L ELBOWS AND SCALP;
[2016-05-30] VITALS: BP 97/51
[2016-05-30 06:09] LABS: ABSOLUTE BASOPHIL COUNT 0.1 /CUMM (0.0-0.2); ABSOLUTE EOSINOPHIL COUNT 0 /CUMM (0.0-0.7); EOSINOPHIL % 0.2 % (0-5); RBC DISTRIBUTION WIDTH 17.2 % (11.5-14.5)
[2016-05-30 06:11] LABS: ABSOLUTE GRANULOCYTE CT 5.6 /CUMM (1.4-6.5); ABSOLUTE LYMPH COUNT 2.6 /CUMM (1.2-3.4); BASOPHIL % 1.2 % (0.0-2.0); GRANULOCYTE % 60.3 % (42.2-75.2); MEAN CORPUSCULAR HGB 26.9 PG (27.0-31.0); MEAN CORPUSCULAR HGB CONC 33.1 G/DL (33.0-37.0); MEAN CORPUSCULAR VOLUME 81.3 FL (81.0-99.0); MEAN PLATELET VOLUME 8.4 FL (7.4-10.4); PLATELET COUNT 328 /CUMM (130-400); RED BLOOD CELL CT 4.04 /CUMM (4.20-5.40); WHITE BLOOD CELL COUNT 9.3 /CUMM (4.8-10.8)
[2016-05-30 06:15] LABS: HEMATOCRIT 32.9 % (37-47)
--- NOTE | 2016-05-30 07:20 | NUR ---
PT SLEPT MOST OF NIGHT. PT STATES RT EAR PAIN IMPROVED, C/O NECK WHICH IS RELIEVED WITH MORPHINE-SEE EMAR FOR ADMINISTRATION. BREATH SOUNDS REMAIN CLEAR. NO SOB OR RESP DISTRESS NOTED THOUGHOUT SHIFT. MONITOR NSR-ST-80'S-100'S FOR SHIFT, NO ECTOPY NOTED THOUGHOUT SHIFT. SBP-90-120'S FOR SHIFT. ABD SOFT, NONTENDER, NONDISTENDED, POSITIVE BOWEL SOUNDS. OOB TO BR-GAIT STEADY-VOIDING CLEAR YELLOW URINE. SKIN INTACT. ACCUCHECKS [id number] FOR SHIFT-INSULIN GTT CURRENTLY INFUSING AT 2 UNITS/HR
--- NOTE | 2016-05-30 07:27 | PN- Diabetes ---
Assessment/Plan Assessment: Patient feels much better this morning. Her nausea and vomiting has resolved. Her most recent labs show glucose 155 BUN 10 creatinine 0.7. CO2 was 19 and anion gap is 6. Her ketoacidosis has resolved. Plan: Suggest at this time he can switch the patient to subcutaneous insulin. I would begin a diabetic diet. He should give Levemir 12 units twice a day the first dose stat. In addition we need to begin the patient on sliding scale NovoLog. Sliding-scale NovoLog before meals should be 80-150 give 4 units NovoLog, 151-200 give 6 units NovoLog , 201-250 give 7 units NovoLog, 251-300 give 8 units NovoLog, 301-350 give 9 units NovoLog, 351-400 give 10 units NovoLog. A separate sliding-scale bedtime NovoLog should be written. Bedtime sliding scale NovoLog should be less than 250 give no insulin 251-300 give 2 units NovoLog, 301-350 give 3 units NovoLog, 351 of 400 give 4 units NovoLog. We can reduce the patient's IV fluids to 50 mL an hour and discontinue the fluids when patient is taking her diet well. We shouldn't give the first dose of NovoLog this morning before breakfast. One hour after the first dose of NovoLog and Levemir we can discontinue the insulin drip. We should begin the patient on a proton pump inhibitor view of her morning prior to admission. The patient needs in an ear nose and throat consult. Subjective Subjective: Feels improved Review of Systems Constitutional: Denies: chills, fever. EENTM: Reports: ear pain. Cardiovascular: Denies: chest pain. Respiratory: Denies: cough, short of breath. Gastrointestinal: Denies: abdominal pain, nausea, vomiting. Genitourinary: Denies: dysuria. Objective Last 24 Hrs of Vital Signs/I&O Vital Signs Date Time Temp Pulse Resp B/P Pulse O2 O2 Flow FiO2 Ox Delivery Rate 05/30 0400 98 Room Air Room Air 05/30 0000 97 Room Air Room Air 05/30 0000 96.5 91 14 97/51 97 Room Air Room Air 05/29 2000 100 Room Air Room Air 05/29 1554 116 20 136/65 100 Room Air 05/29 1450 117 18 171/79 99 05/29 1447 98.9 117 18 181/81 05/29 1435 117 18 181/81 99 Room Air 05/29 1430 99 Room Air 05/29 1430 97.4 109 17 136/70 99 Room Air 05/29 1242 98.9 122 20 180/84 100 Room Air 05/29 0940 113 20 144/91 100 Room Air Intake & Output 05/30 0800 05/30 0000 05/29 1600 Intake Total 2070 676 1000 Output Total 800 900 Balance 1270 -224 1000 Intake, IV 2070 676 1000 Number 0 0 Bowel Movements Output, Urine 800 900 Patient 175 lb Weight Vital Signs Date Time Temp Pulse Resp B/P Pulse O2 O2 Flow FiO2 Ox Delivery Rate 05/30 0400 98 Room Air Room Air 05/30 0000 97 Room Air Room Air 05/30 0000 96.5 91 14 97/51 97 Room Air Room Air 05/29 2000 100 Room Air Room Air 05/29 1554 116 20 136/65 100 Room Air 05/29 1450 117 18 171/79 99 05/29 1447 98.9 117 18 181/81 05/29 1435 117 18 181/81 99 Room Air 05/29 1430 99 Room Air 05/29 1430 97.4 109 17 136/70 99 Room Air 05/29 1242 98.9 122 20 180/84 100 Room Air 05/29 0940 113 20 144/91 100 Room Air Intake & Output 05/30 0800 05/30 0000 05/29 1600 Intake Total 2070 676 1000 Output Total 800 900 Balance 1270 -224 1000 Intake, IV 2070 676 1000 Number 0 0 Bowel Movements Output, Urine 800 900 Patient 175 lb Weight Physical Exam General Appearance: alert, awake, comfortable Head: normal appearance Neck: normal inspection Respiratory: normal breath sounds Cardiovascular: regular rate/rhythm Abdomen: normal bowel sounds Extremities: normal inspection Current Medications: Current Medications Sig/Regine Start time Last Medication Dose Route Stop Time Status Admin Acetaminophen 650 MG Q6P PRN 05/29 1315 AC PO Acetaminophen 1,000 MG Q6P PRN 05/29 1315 AC 05/29 IV 1736 Calcium Gluconate 0 .STK-MED ONE 05/29 1433 DC IV Calcium Gluconate 1 GM ONCE ONE 05/29 1330 DC 05/29 Sodium Chloride 100 ML IV 05/29 1429 1340 Ceftriaxone Sodium 1,000 MG DAILY@1800 05/29 1800 DC IV Dextrose/Sodium 1,000 ML Q6H 05/29 1730 DC 05/29 Chloride IV 1735 Diclofenac Sodium 1 VANNESSA 4 TIMES/DAY 05/29 1400 AC 05/29 TOP 2118 Duloxetine HCl 90 MG DAILY 05/29 1227 AC 05/29 PO 1814 Enoxaparin Sodium 0 .STK-MED ONE 05/29 1442 DC SC Enoxaparin Sodium 40 MG DAILY 05/29 1311 AC 05/29 SC 1447 Gabapentin 300 MG 4 TIMES/DAY 05/29 1400 AC 05/29 PO 2117 Insulin Human Regular 100 UNIT Q24H 05/29 2330 AC 05/30 Sodium Chloride 100 ML IV 0601 Insulin Human Regular 10 UNITS ONCE ONE 05/29 1100 DC 05/29 SC 05/29 1101 1126 Insulin Human Regular 100 UNIT ONCE ONE 05/29 1100 DC 05/29 Sodium Chloride 100 ML IV 05/30 0659 1126 Levothyroxine Sodium 0.075 MG Gregg@0700 05/31 0700 AC PO Levothyroxine Sodium 0.15 MG MoTuWeThFrSa@0700 05/30 0700 AC 05/30 PO 0552 Levothyroxine Sodium 0.15 MG DAILY AC 05/29 1225 DC PO Lisinopril 0 .STK-MED ONE 05/29 1442 DC PO Lisinopril 30 MG DAILY 05/29 1225 AC 05/29 PO 1447 Magnesium Oxide 400 MG ONE ONE 05/29 1999 DC 05/29 PO 05/29 2000 2116 Morphine Sulfate 0 .STK-MED ONE 05/29 1550 DC .ROUTE Morphine Sulfate 2 MG Q4P PRN 05/29 1315 AC 05/30 IV 0552 Morphine Sulfate 2 MG ONCE ONE 05/29 1245 DC 05/29 IV 05/29 1246 1250 Morphine Sulfate 0 .STK-MED ONE 05/29 1245 DC .ROUTE Non-Formulary 0 SEE ADMIN CRITERIA 05/29 1830 DC Medication ANY Ondansetron HCl 4 MG Q8P PRN 05/29 1315 AC IV Ondansetron HCl 4 MG ONCE ONE 05/29 1245 DC 05/29 IV 05/29 1246 1250 Ondansetron HCl 0 .STK-MED ONE 05/29 1245 DC .ROUTE Phosphate 250 MG ONCE ONE 05/29 1999 DC 05/29 PO 05/29 2000 2116 Piperacillin Sod/ 3.375 GM Q6H 05/29 1930 AC 05/30 Tazobactam Sod IV 0214 Sodium Chloride 100 ML Potassium Chloride 20 MEQ Q5H 05/30 0045 AC 05/30 Dextrose/Sodium 1,000 ML IV 0216 Chloride Potassium Chloride 20 MEQ Q8H 05/29 2000 DC 05/29 Dextrose/Sodium 1,000 ML IV 2034 Chloride Potassium Phosphate 15 mMol ONE ONE 05/30 0630 AC Dextrose/Water 250 ML IV 05/30 1033 Pravastatin Sodium 40 MG QPM 05/29 2200 AC 05/29 PO 2117 Promethazine HCl 12.5 MG ONCE ONE 05/29 0800 DC 05/29 IV 05/29 0801 0801 Promethazine HCl 0 .STK-MED ONE 05/29 0757 DC .ROUTE Sodium Chloride 1,000 ML Q1H 05/29 1230 DC 05/29 IV 05/29 1529 1430 Sodium Chloride 1,000 ML BOLUS ONE 05/29 0800 DC 05/29 IV 05/29 0859 0801 Findings Pertinent Lab/Tex Results: Laboratory Tests 05/30 05/30 05/29 0540 0040 1745 Chemistry Sodium (137 - 145 mmol/L) 137 134 L 130 L Potassium (3.5 - 5.1 mmol/L) 3.9 4.2 4.9 Chloride (98 - 107 mmol/L) 112 H 109 H 104 Carbon Dioxide (22 - 30 mmol/L) 19 L 18 L 12 L Anion Gap (5 - 16) 6 7 14 BUN (7 - 17 mg/dL) 10 12 16 Creatinine (0.5 - 1.0 mg/dL) 0.7 0.8 0.8 Estimated GFR (>60 ml/min) > 60 > 60 > 60 Glucose (65 - 99 mg/dL) 155 H 152 H 248 H Calcium (8.4 - 10.2 mg/dL) 8.7 9.5 9.0 Phosphorus (2.5 - 4.5 mg/dL) 1.1 L 1.6 L 2.2 L Magnesium (1.6 - 2.3 mg/dL) 2.0 2.1 1.8 Total Bilirubin (0.2 - 1.3 mg/dL) 0.6 0.8 0.6 AST (14 - 36 U/L) 28 19 15 ALT (9 - 52 U/L) 52 53 H 54 H Albumin (3.5 - 5.0 g/dL) 2.7 L 3.5 3.3 L Hematology CBC w Diff NO MAN DIFF REQ WBC (4.8 - 10.8 /CUMM) 9.3 RBC (4.20 - 5.40 /CUMM) 4.04 L Hgb (12.0 - 16.0 G/DL) 10.9 L Hct (37 - 47 %) 32.9 L MCV (81.0 - 99.0 FL) 81.3 MCH (27.0 - 31.0 PG) 26.9 L RDW (11.5 - 14.5 %) 17.2 H Plt Count (130 - 400 /CUMM) 328 MPV (7.4 - 10.4 FL) 8.4 Gran % (42.2 - 75.2 %) 60.3 Lymphocytes % (20.5 - 51.1 %) 28.0 Monocytes % (1.7 - 9.3 %) 10.3 H Eosinophils % (0 - 5 %) 0.2 Basophils % (0.0 - 2.0 %) 1.2 Absolute Granulocytes (1.4 - 6.5 /CUMM) 5.6 Absolute Lymphocytes (1.2 - 3.4 /CUMM) 2.6 Absolute Monocytes (0.10 - 0.60 /CUMM) 1.0 H Absolute Eosinophils (0.0 - 0.7 /CUMM) 0 Absolute Basophils (0.0 - 0.2 /CUMM) 0.1 PUBS MCHC (33.0 - 37.0 G/DL) 33.1 05/29 05/29 05/29 1730 1510 0935 Chemistry Sodium (137 - 145 mmol/L) Cancelled 130 L 126 L Potassium (3.5 - 5.1 mmol/L) Cancelled 5.4 H 6.2 *H Chloride (98 - 107 mmol/L) Cancelled 101 98 Carbon Dioxide (22 - 30 mmol/L) Cancelled 10 L 6 *L Anion Gap (5 - 16) Cancelled 19 H 22 H BUN (7 - 17 mg/dL) Cancelled 18 H 20 H Creatinine (0.5 - 1.0 mg/dL) Cancelled 0.9 0.9 Estimated GFR (>60 ml/min) > 60 > 60 BUN/Creatinine Ratio (7 - 25 %) 22.2 Glucose (65 - 99 mg/dL) Cancelled 329 H 471 H Serum Osmolality (285 - 295 MOSM/KG) 302 H Calcium (8.4 - 10.2 mg/dL) Cancelled 9.4 9.6 Phosphorus (2.5 - 4.5 mg/dL) Cancelled 2.6 Magnesium (1.6 - 2.3 mg/dL) Cancelled 1.9 Total Bilirubin (0.2 - 1.3 mg/dL) Cancelled 0.5 0.9 AST (14 - 36 U/L) Cancelled 18 21 ALT (9 - 52 U/L) Cancelled 56 H 64 H Alkaline Phosphatase (<127 U/L) 174 H Total Protein (6.3 - 8.2 g/dL) 7.2 Albumin (3.5 - 5.0 g/dL) Cancelled 3.9 4.3 Globulin (1.9 - 4.2 gm/dL) 2.9 Albumin/Globulin Ratio (1.1 - 2.2 %) 1.5 Lipase (23 - 300 U/L) < 10 L Toxicology Acetone Level (NEGATIVE) POSITIVE AT 1:16 DIL 05/29 05/29 0840 0740 Hematology CBC w Diff NO MAN DIFF REQ WBC (4.8 - 10.8 /CUMM) 12.4 H RBC (4.20 - 5.40 /CUMM) 5.03 Hgb (12.0 - 16.0 G/DL) 13.5 Hct (37 - 47 %) 41.4 MCV (81.0 - 99.0 FL) 82.3 MCH (27.0 - 31.0 PG) 26.9 L RDW (11.5 - 14.5 %) 16.9 H Plt Count (130 - 400 /CUMM) 478 H MPV (7.4 - 10.4 FL) 8.9 Gran % (42.2 - 75.2 %) 88.2 H Lymphocytes % (20.5 - 51.1 %) 8.6 L Monocytes % (1.7 - 9.3 %) 2.7 Eosinophils % (0 - 5 %) 0 Basophils % (0.0 - 2.0 %) 0.5 Absolute Granulocytes (1.4 - 6.5 /CUMM) 10.9 H Absolute Lymphocytes (1.2 - 3.4 /CUMM) 1.1 L Absolute Monocytes (0.10 - 0.60 /CUMM) 0.3 Absolute Eosinophils (0.0 - 0.7 /CUMM) 0 Absolute Basophils (0.0 - 0.2 /CUMM) 0.1 PUBS MCHC (33.0 - 37.0 G/DL) 32.7 L Urines Urinalysis LIGHT H Urine Color (YEL,AMB,STR) YEL Urine Clarity (CLEAR) CLEAR Urine pH (5.0 - 8.0) 6.0 Ur Specific [place] (1.001 - 1.035) >= 1.030 Urine Protein (NEG,<30 MG/DL) TRACE H Urine Ketones (NEG) >=80 Urine Nitrite (NEG) NEG Urine Bilirubin (NEG) NEG Urine Urobilinogen (0.1 - 1.0 EU/dl) 0.2 Ur Leukocyte Esterase (NEG) NEG Ur Microscopic SEDIMENT EXAMINED Urine RBC (0 - 5 /HPF) RARE Urine WBC (0 - 2 /HPF) RARE Ur Epithelial Cells (NONE,FEW) MOD H Hyaline Casts (0/LPF) RARE H Urine Mucus (FEW,NONE) RARE Urine Hemoglobin (NEG) MOD H Urine Glucose (N MG/DL) >=1000 H
[2016-05-30 08:00] VITALS: BP 118/70
--- NOTE | 2016-05-30 08:55 | PN- Resident CRCU ---
Subjective HPI/CRCU Issues: She was seen and examined. She is laying on bed looks relaxed and comfortable. Patient reported significant improvement of her ear pain, however hearing is getting worse. Patient has mild epigastric tenderness. She denies nausea, vomiting, or abdominal pain. Objective Vital Signs & I&O Last 8 Hrs of Vitals and I&O: Intake & Output 05/30 1600 Intake Total Output Total Balance Patient 79.379 kg Weight Exam General Appearance: well developed/nourished, no apparent distress, alert, awake , comfortable Head: atraumatic, normal appearance Respiratory: normal breath sounds, chest non-tender, no respiratory distress, quiet respiration Cardiovascular: regular rate/rhythm Gastrointestinal: normal bowel sounds, soft, non-tender Extremities: no edema Current Medications: Current Medications Sig/Regine Start time Last Medication Dose Route Stop Time Status Admin Acetaminophen 650 MG Q6P PRN 05/29 1315 AC PO Acetaminophen 1,000 MG Q6P PRN 05/29 1315 AC 05/30 IV 0840 Calcium Gluconate 0 .STK-MED ONE 05/29 1433 DC IV Calcium Gluconate 1 GM ONCE ONE 05/29 1330 DC 05/29 Sodium Chloride 100 ML IV 05/29 1429 1340 Ceftriaxone Sodium 1,000 MG DAILY@1800 05/29 1800 DC IV Dextrose/Sodium 1,000 ML Q6H 05/29 1730 MS 05/29 Chloride IV 1735 Diclofenac Sodium 1 VANNESSA 4 TIMES/DAY 05/29 1400 AC 05/29 TOP 2118 Duloxetine HCl 90 MG DAILY 05/29 1227 AC 05/29 PO 1814 Enoxaparin Sodium 0 .STK-MED ONE 05/29 1442 DC SC Enoxaparin Sodium 40 MG DAILY 05/29 1311 05/29 SC 1447 Gabapentin 300 MG 4 TIMES/DAY 05/29 1400 AC 05/29 PO 2117 Insulin Aspart 0 TIDAC/HS 05/30 1200 AC SC Insulin Aspart 7 UNITS ONCE ONE 05/30 0915 DC 05/30 SC 05/30 0916 0918 Insulin Detemir 12 UNITS BID 05/30 1000 AC 05/30 SC 0919 Insulin Human Regular 100 UNIT Q24H 05/29 2330 AC 05/30 Sodium Chloride 100 ML IV 0601 Insulin Human Regular 10 UNITS ONCE ONE 05/29 1100 DC 05/29 TN 05/29 1101 1126 Insulin Human Regular 100 UNIT ONCE ONE 05/29 1100 DC 05/29 Sodium Chloride 100 ML IV 05/30 0659 1126 Levothyroxine Sodium 0.075 MG Gregg@0700 05/31 0700 AC PO Levothyroxine Sodium 0.15 MG MoTuWeThFrSa@0700 05/30 0700 AC 05/30 PO 0552 Levothyroxine Sodium 0.15 MG DAILY AC 05/29 1225 DC PO Lisinopril 0 .STK-MED ONE 05/29 1442 DC PO Lisinopril 30 MG DAILY 05/29 1225 AC 05/29 PO 1447 Magnesium Oxide 400 MG ONE ONE 05/29 1999 DC 05/29 PO 05/29 2000 2116 Morphine Sulfate 0 .STK-MED ONE 05/29 1550 DC .ROUTE Morphine Sulfate 2 MG Q4P PRN 05/29 1315 AC 05/30 IV 0552 Morphine Sulfate 2 MG ONCE ONE 05/29 1245 DC 05/29 IV 05/29 1246 1250 Morphine Sulfate 0 .STK-MED ONE 05/29 1245 DC .ROUTE Non-Formulary 0 SEE ADMIN CRITERIA 05/29 1830 DC Medication ANY Omeprazole 20 MG DAILY AC 05/30 0936 AC PO Ondansetron HCl 4 MG Q8P PRN 05/29 1315 AC IV Ondansetron HCl 4 MG ONCE ONE 05/29 1245 DC 05/29 IV 05/29 1246 1250 Ondansetron HCl 0 .STK-MED ONE 05/29 1245 DC .ROUTE Phosphate 250 MG ONCE ONE 05/29 1999 DC 05/29 PO 05/29 2000 2116 Piperacillin Sod/ 3.375 GM Q6H 05/29 1930 05/30 Tazobactam Sod IV 0214 Sodium Chloride 100 ML Potassium Chloride 20 MEQ Q5H 05/30 0045 AC 05/30 Dextrose/Sodium 1,000 ML IV 0835 Chloride Potassium Chloride 20 MEQ Q8H 05/29 1999 DC 05/29 Dextrose/Sodium 1,000 ML IV 2034 Chloride Potassium Phosphate 15 mMol ONE ONE 05/30 0630 AC Dextrose/Water 250 ML IV 05/30 1033 Pravastatin Sodium 40 MG QPM 05/29 2200 AC 05/29 PO 2117 Sodium Chloride 1,000 ML Q1H 05/29 1230 DC 05/29 IV 05/29 1529 1430 Impression/Plan Impression/Problem List Impression: 50/F with PMH of Hypothyroidism, HTN, HLD, depression, hx of alcohol abuse, and DM for which she is on insulin pump, who presented with symptoms and signs suggestive of DKA and otitis media. A&P 1.Otitis Media: As mentioned in the history, She has few days history of otitis Media that failed out patient treatment with Augmentin and most likely complicated her DM with DKA. on the other hand, her uncontrolled DM increase her risk of Malignant or Necrotizing otitis externa. The combination of DKA and refractory ear infection make this patient a Critically ill patient. Head CT with IV contrast result could reflect a mild acute mastoiditis. Chest x-ray exclude any acute chest pathology. Patient is already on antibiotics that cover Pseudomonas. * IV Abx that cover Pseudomonas aeruginosa will be started. * Stevens culture including ear discharge. * IV Morphine, IV Acetaminophen(Tylenol) will be used to manage pain * IV Ondansetron(Zofran) PRN for nausea * Waiting for ENT recommendations. 2.DKA: patient diabetic and is on insulin Pump. The presence of sever ear infection disrupt and worsen the control of her diabetes M. She presented with picture fits DKA. To make sure she received effective treatment and to establish a good, fair blood glucose control, her Swine Genetics Researcher will be consulted. Patient hyperkalemia was still twisted yesterday.now this within normal range. Her sugar is fairly controlled now. The plan to treat her DKA is the following. * Patient will be monitored in the ICU * Patient will be switch to Levemir twice a day and NovoLog sliding scale before meals and one before bedtime * We will repeat ICU bundle and CBC daily * Swine Genetics Researcher recommendation is highly appreciated Stable conditions 3.Hypothyroidism, HTN, HLD, peripheral neuropathy Depression: * home dose of synthroid 150mcg wednesday-wednesday and 75mcg on wednesday will be continued.Hypothyroidism * pravastatin 40mg QPM PO will be given.HLD * Gabapentin 300 mg Q6 PO will be given.Neuropathy * Duloxetine 90mg daily PO will be given.Depression& neuropathy * Lisinopril 30 mg daily po will be given.HTN FC NPO dvt [email or web address] Problem List: 1. Otitis externa of right ear 2. DKA (diabetic ketoacidoses) 3. Otitis media Pain Ratin Tomorrow's Labs & Rationales: cbc, ICU bundle Plan DVT/Prophylaxis: mechanical, pharmacological
--- NOTE | 2016-05-30 09:20 | PN- CRCU ---
Subjective HPI/Critical Care Issues: The patient is awake and alert. She reports feeling significantly improved. Her abdominal pain has resolved. Her right ear pain has improved but has not resolved. She is afebrile. She was nauseated earlier however this has resolved. Objective Current Medications: Current Medications Sig/Regine Start time Last Medication Dose Route Stop Time Status Admin Acetaminophen 650 MG Q6P PRN 05/29 1315 AC PO Acetaminophen 1,000 MG Q6P PRN 05/29 1315 AC 05/30 IV 0840 Calcium Gluconate 0 .STK-MED ONE 05/29 1433 DC IV Calcium Gluconate 1 GM ONCE ONE 05/29 1330 DC 05/29 Sodium Chloride 100 ML IV 05/29 1429 1340 Ceftriaxone Sodium 1,000 MG DAILY@1800 05/29 1800 DC IV Dextrose/Sodium 1,000 ML Q6H 05/29 1730 DC 05/29 Chloride IV 1735 Diclofenac Sodium 1 VANNESSA 4 TIMES/DAY 05/29 1400 AC 05/29 TOP 2118 Duloxetine HCl 90 MG DAILY 05/29 1227 AC 05/29 PO 1814 Enoxaparin Sodium 0 .STK-MED ONE 05/29 1442 DC SC Enoxaparin Sodium 40 MG DAILY 05/29 1311 AC 05/29 SC 1447 Gabapentin 300 MG 4 TIMES/DAY 05/29 1400 AC 05/29 PO 2117 Insulin Aspart 0 TIDAC/HS 05/30 1200 AC SC Insulin Detemir 12 UNITS BID 05/30 1000 AC SC Insulin Human Regular 100 UNIT Q24H 05/29 2330 AC 05/30 Sodium Chloride 100 ML IV 0601 Insulin Human Regular 10 UNITS ONCE ONE 05/29 1100 DC 05/29 SC 05/29 1101 1126 Insulin Human Regular 100 UNIT ONCE ONE 05/29 1100 DC 05/29 Sodium Chloride 100 ML IV 05/30 0659 1126 Levothyroxine Sodium 0.075 MG Gregg@00 05/31 0700 AC PO Levothyroxine Sodium 0.15 MG MoTuWeThFrSa@05/30 0700 AC 05/30 PO 0552 Levothyroxine Sodium 0.15 MG DAILY AC 05/29 1225 DC PO Lisinopril 0 .STK-MED ONE 05/29 1442 DC PO Lisinopril 30 MG DAILY 05/29 1225 AC 05/29 PO 1447 Magnesium Oxide 400 MG ONE ONE 01/1999 DC 05/29 PO 05/296 Morphine Sulfate 0 .STK-MED ONE 05/29 1550 DC .ROUTE Morphine Sulfate 2 MG Q4P PRN 05/29 1315 AC 05/30 IV 0552 Morphine Sulfate 2 MG ONCE ONE 05/29 1245 DC 05/29 IV 05/29 1246 1250 Morphine Sulfate 0 .STK-MED ONE 05/29 1245 DC .ROUTE Non-Formulary 0 SEE ADMIN CRITERIA 05/29 1830 DC Medication ANY Ondansetron HCl 4 MG Q8P PRN 05/29 1315 AC IV Ondansetron HCl 4 MG ONCE ONE 05/29 1245 DC 05/29 IV 05/29 1246 1250 Ondansetron HCl 0 .STK-MED ONE 05/29 1245 DC .ROUTE Phosphate 250 MG ONCE ONE 05/29 1999 DC 05/29 PO 05/29 2000 2116 Piperacillin Sod/ 3.375 GM Q6H 05/29 1930 AC 05/30 Tazobactam Sod IV 0214 Sodium Chloride 100 ML Potassium Chloride 20 MEQ Q5H 05/30 0045 AC 05/30 Dextrose/Sodium 1,000 ML IV 0835 Chloride Potassium Chloride 20 MEQ Q8H 05/29 1999 DC 05/29 Dextrose/Sodium 1,000 ML IV 2034 Chloride Potassium Phosphate 15 mMol ONE ONE 05/30 0630 AC Dextrose/Water 250 ML IV 05/30 1033 Pravastatin Sodium 40 MG QPM 05/29 2200 AC 05/29 PO 2117 Sodium Chloride 1,000 ML Q1H 05/29 1230 DC 05/29 IV 05/29 1529 1430 Vital Signs & I&O Last 24 Hrs of Vitals and I&O: Vital Signs Date Time Temp Pulse Resp B/P Pulse O2 O2 Flow FiO2 Ox Delivery Rate 05/30 0400 98 Room Air Room Air 05/30 0000 97 Room Air Room Air 05/30 0000 96.5 91 14 97/51 97 Room Air Room Air 05/29 1999 100 Room Air Room Air 05/29 1554 116 20 136/65 100 Room Air 05/29 1450 117 18 171/79 99 05/29 1447 98.9 117 18 181/81 05/29 1435 117 18 181/81 99 Room Air 05/29 1430 99 Room Air 05/29 1430 97.4 109 17 136/70 99 Room Air 01/27 1242 98.9 122 20 180/84 100 Room Air 05/29 0940 113 20 144/91 100 Room Air Intake & Output 05/30 1600 05/30 0800 05/30 0000 Intake Total 2070 676 Output Total 800 900 Balance 1270 -224 Intake, IV 2069 676 Number 0 0 Bowel Movements Output, Urine 800 900 Physical Exam General Appearance Alert, Oriented X3, Cooperative Skin No Rashes HEENT Atraumatic, PERRLA Neck No JVD Cardiovascular Regular Rate, Normal S1, Normal S2, No Murmurs Lungs Clear to Auscultation, Normal Air Movement Abdomen Soft, No Tenderness Neurological Normal Speech Extremities No Clubbing, No Cyanosis, No Edema Results Last 24 Hrs of Lab Results: Laboratory Tests 05/30/16 0540: Anion Gap 6, Estimated GFR > 60, Glucose 155 H, Calcium 8.7, Phosphorus 1.1 L, Magnesium 2.0, Total Bilirubin 0.6, AST 28, ALT 52, Albumin 2.7 L, CBC w Diff NO MAN DIFF REQ, RBC 4.04 L, MCV 81.3, MCH 26.9 L, RDW 17.2 H, MPV 8.4, Gran % 60.3, Lymphocytes % 28.0, Monocytes % 10.3 H, Eosinophils % 0.2, Basophils % 1.2, Absolute Granulocytes 5.6, Absolute Lymphocytes 2.6, Absolute Monocytes 1.0 H, Absolute Eosinophils 0, Absolute Basophils 0.1, PUBS MCHC 33.1 05/30/16 0040: Anion Gap 7, Estimated GFR > 60, Glucose 152 H, Calcium 9.5, Phosphorus 1.6 L, Magnesium 2.1, Total Bilirubin 0.8, AST 19, ALT 53 H, Albumin 3.5 05/29/16 1745: Anion Gap 14, Estimated GFR > 60, Glucose 248 H, Calcium 9.0, Phosphorus 2.2 L , Magnesium 1.8, Total Bilirubin 0.6, AST 15, ALT 54 H, Albumin 3.3 L 05/29/16 1730: Sodium Cancelled, Potassium Cancelled, Chloride Cancelled, Carbon Dioxide Cancelled, Anion Gap Cancelled, BUN Cancelled, Creatinine Cancelled, Glucose Cancelled, Calcium Cancelled, Phosphorus Cancelled, Magnesium Cancelled, Total Bilirubin Cancelled, AST Cancelled, ALT Cancelled, Albumin Cancelled 05/29/16 1510: Anion Gap 19 H, Estimated GFR > 60, Glucose 329 H, Calcium 9.4, Phosphorus 2.6 , Magnesium 1.9, Total Bilirubin 0.5, AST 18, ALT 56 H, Albumin 3.9 05/29/16 0935: Anion Gap 22 H, Estimated GFR > 60, BUN/Creatinine Ratio 22.2, Glucose 471 H, Serum Osmolality 302 H, Calcium 9.6, Total Bilirubin 0.9, AST 21, ALT 64 H, Alkaline Phosphatase 174 H, Total Protein 7.2, Albumin 4.3, Globulin 2.9, Albumin/Globulin Ratio 1.5, Lipase < 10 L, Acetone Level POSITIVE AT 1:16 DIL Last 24 Hrs of Micro Results: All cultures are pending. Diagnostic Data CT Scan Findings: 1. Patchy opacification of several right posterior mastoid air cells. This finding is entirely nonspecific but could reflect a mild acute mastoiditis. No cortical erosions or cortical destruction of the right temporal bone is identified. 2. There is questionable minimal fluid within the right middle ear, which may represent a developing right-sided otitis media. Correlate with direct visualization. 3. Soft tissue density within the right external auditory canal likely represents cerumen. Correlate with direct visualization. Impression/Plan Impression/Plan Impression/Plan: 1. Diabetic ketoacidosis, with resolved anion gap acidosis. 2. Right ear infection/otitis externa. 3. Hypothyroidism. 4. History of hypertension - blood pressure is currently stable. Recommendations: * Follow up cultures. * Continue Zosyn pending results. * Await ENT input. * Follow endocrine's recommendations. Will change IV fluids and insulin administration as recommended. Appreciate input. * Add a proton pump inhibitor. * Continue DVT prophylaxis. * Continue all current medications. * Will downgrade to [facility] if the patient is stable later this afternoon.
--- NOTE | 2016-05-30 10:41 | NUR ---
10[address] ACC[address] FERRERA KEEP INSULIN GTT RUNNING AR 2 UNITS/HOUR
--- NOTE | 2016-05-30 11:16 | NUR ---
MANUAL BP 90/56,AUTO CUFF 86/51 30MG LISINOPRIL HELD AWARE
--- NOTE | 2016-05-30 11:46 | Cons- Ear,Nose&Throat ---
General Information and HPI Consulting Request Date of Consult: 05/30/16 Requested By: CHUCKY SHAH MD Reason for Consult: ear infection Source of Information: patient, old records Exam Limitations: no limitations History of Present Illness: 50 year old WF with diabetes, complicated by neuropathy, HTN, depression, alcohol abuse who had ear infection several days ago treated with Augmentin. Blood sugars elevated to 300 and presented to [place] [facility]. Admitted for DKA. ENT consultation requested for ear infection. She has ear pain which is now much better, decreased hearing, and drainage from right ear. Today she feels much better than last night when she was admitted. Dr Araujo was called, and he asked me to see patient for consultation. She has no history of prior ear problems. WAs on ceftriaxone, but since Pseudomonas is a concern, changed to Zosyn. No ear drops Allergies/Medications Allergies: Coded Allergies: No Known Allergies (01/27/16) Home Med List: Chlordiazepoxide HCl 25 MG CAPSULE 2 CAP PO Q8P ETOH 2 TABS 3 TIMES DAILY FOR 1 DAY 2 TABS 2 TIMES DAILY FOR 1 DAY 2 TABS DAILY FOR 1 DAY Cyanocobalamin (Vitamin B-12) (Cyanocobalamin Injection) 1,000 MCG/ML VIAL 1 ML IM Q30D SUPPLEMENT (Reported) Duloxetine HCl 30 MG CAPSULE. 3 CAP PO DAILY MENTAL HEALTH (Reported) Gabapentin 300 MG CAPSULE 1 CAP PO 4 TIMES/DAY NEUROPATHY/ANXIETY (Reported) Insulin Lispro (Humalog) 100 UNIT/ML VIAL 0 SC DIABETES (Reported) HUMALOG VIA PUMP Levothyroxine Sodium 150 MCG TABLET 1 TAB PO DAILY THYROID (Reported) Lisinopril 30 MG TABLET 1 TAB PO DAILY BP (Reported) Pravastatin Sodium (Pravastatin) 40 MG TAB 1 TAB PO AT BEDTIME HYPERCHOLESTROLEMIA (Reported) Tapentadol HCl (Nucynta) 50 MG TABLET 1 TAB PO 4 TIMES/DAY PAIN (Reported) Past History Medical History Blood Transfusion Hx: No Neurological: peripheral neuropathy (lower extremities), PERIPHERAL NEUROPATHY Cardiovascular: hypertension Gastrointestinal: constipation Hepatic: LIVER ABCESS Renal: NONE Musculoskeletal: fracture, osteoarthritis, psoariatic arthritis, R SHOULDER, osteomyelitis of the left fifth toe s/p rt ankle fx/screws s/p rt shoul fx/surg Psychiatric: chronic pain disorder, insomnia Endocrine: diabetes, hypothyroidism Blood Disorders: anemia Cancer(s): NONE WILDLIFE 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 Home Services at Home: None Primary Language: Nepali Smoking Status: Never Smoked ETOH Use: denies use Illicit Drug Use: denies illicit drug use Functional Ability ADLs Independent: dressing, eating, toileting, bathing. Ambulation: independent IADLs Independent: shopping, housework, finances, food prep, telephone, transportation , medication admin. Review of Systems Review of Systems: non contributory through 13 systems Exam & Diagnostic Data Vital Signs and I&O Vital Signs Date Time Temp Pulse Resp B/P Pulse O2 O2 Flow FiO2 Ox Delivery Rate 05/30 1122 90/56 05/30 0400 98 Room Air Room Air 05/30 0000 97 Room Air Room Air 05/30 0000 96.5 91 14 97/51 97 Room Air Room Air 05/29 2000 100 Room Air Room Air 05/29 1554 116 20 136/65 100 Room Air 05/29 1450 117 18 171/79 99 05/29 1447 98.9 117 18 181/81 05/29 1435 117 18 181/81 99 Room Air 05/29 1430 99 Room Air 05/29 1430 97.4 109 17 136/70 99 Room Air 05/29 1242 98.9 122 20 180/84 100 Room Air Intake & Output 05/30 1600 05/30 0800 05/30 0000 05/29 1600 05/29 0800 05/29 0000 Intake Total 2070 676 1000 0 Output Total 800 900 Balance 1270 -224 1000 0 Intake, IV 2070 676 1000 Intake, Oral 0 Number 0 0 Bowel Movements Output, Urine 800 900 Patient 175 lb 175 lb 175 lb Weight Physical Exam: 50 yo resting comfortably in ICU bed Breathing comfortably without stridor Ears: Right side with purulent fluid in medial EAC. culture of pus was taken. unable to visualize theTM No mastoid tenderness. Outer ear normal. Left side with extensive cerumen. Nose : normal\ Throat: normal Neck: supple, no tenderness posterior neck CN: CN 7 intact bilateral Imaging Results: CT head 05-29-16 IMPRESSION: 1. Patchy opacification of several right posterior mastoid air cells. This finding is entirely nonspecific but could reflect a mild acute mastoiditis. No cortical erosions or cortical destruction of the right temporal bone is identified. 2. There is questionable minimal fluid within the right middle ear, which may represent a developing right-sided otitis media. Correlate with direct visualization. 3. Soft tissue density within the right external auditory canal likely represents cerumen. Correlate with direct visualization. Assessment/Plan Assessment/Plan 50 year old WF with right acute otitis media and admission to [place] for DKA. Sugars are much better controlled already. Ear shows signs of Otitis media and Otitis externa. CT without any severe opacification of middle ear or mastoid. No evidence of skull base involvement.\ Was on Ceftriaxone, changed this morning to Zosyn to cover Pseudomonas more effectively. Also requested addition of ear drops (Cortisporin suspension), ordered with ICU physician. No concerns about malignant otitis externa. Expect patient to do well with current regimen. Can use drops in left ear as well to soften the cerumen impaction. f/u with me in one week to reevaluate and to clear ears with microscope/suction/ etc available in our office. If any other problems develop, please reconsult.\ Left patient with my business card for address and phone number. Thanks Arcadio Riley MD, FACS Consult Acknowledgment - Thank you for your consult request. Attending MD Review Statement Attending Statement Attending MD Statement: examined this patient, discuss w/resident/PA/MORNING BABYSITTER
[2016-05-30 16:00] VITALS: BP 118/64
--- NOTE | 2016-05-30 19:40 | NUR ---
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
[2016-05-30 20:10] VITALS: BP 112/60
[2016-05-30 22:43] VITALS: BP 112/60
--- NOTE | 2016-05-30 23:01 | NUR ---
PT ARRIVED TO ROOM 220-1 AT ABOUT 1999 TODAY 05/30/16. VSS. 112/60,88,97.9,20,97% ON RA. NO C/O PAIN. IV FLUSHED/PATENT. PT ORRIENTED TO ROOM. CALVIN MAINTAINED. CALL LOUIS WITHIN REACH.
[2016-05-31 06:38] VITALS: BP 118/80
--- NOTE | 2016-05-31 08:11 | PN- Housestaff ---
KERRI MEJIA 05/31/16 0811: Subjective Follow-up For: - abdominal pain - right ear pain Subjective: The patient was comfortable this morning. Stated that pain improved compared to yesterday. Complains of decreased hearing on the right side. afebrile overnight and blood pressure was stable. Yesterday, ENT surgeon Dr. Arcadio Riley was consulted who recommended continuation of current antibiotics. No ENT intervention would be required at this time, but would follow-up as an outpatient. Review of Systems Constitutional: Reports: see HPI. Objective Last 24 Hrs of Vital Signs/I&O Vital Signs Date Time Temp Pulse Resp B/P Pulse O2 O2 Flow FiO2 Ox Delivery Rate 05/31 0638 97.8 74 18 118/80 95 Room Air 05/30 2243 97.9 100 20 112/60 97 Room Air 05/30 2010 97.9 100 20 112/60 97 Room Air 05/30 1600 100 Room Air 05/30 1600 97.2 84 15 118/64 100 Room Air 05/30 1122 90/56 Intake & Output 05/31 1600 05/31 0800 05/31 0000 Intake Total 1140 1062 Output Total 350 700 Balance 790 362 Intake, IV 800 722 Intake, Oral 340 340 Number 0 0 Bowel Movements Output, Urine 350 700 Physical Exam General Appearance: No Acute Distress Other Physical Findings: General Exam: AAOx3, No acute distress, Skin: No rashes, no breakdown HEENT: PERRLA, EOMI, couldnt visualize the tympanic membrane. Neck: Supple, No JVD No cervical lymphadenopathy CVS: Reg Rate, Normal S1,S2, No MGR Resp: Normal air entry, no ronchi/rales Abdomen: Soft, No tenderness, Normal Bowel Sounds Neuro: Normal Speech, Strength 5/5 b/l x 4 extremities, Sensation intact, CN III -XII NL, Reflexes 2+ Extremities: No cyanosis, pedal edema Current Medications: Current Medications Sig/Regine Start time Last Medication Dose Route Stop Time Status Admin Acetaminophen 650 MG Q6P PRN 05/29 1315 AC PO Acetaminophen 1,000 MG Q6P PRN 05/29 1315 AC 05/30 IV 0840 Diclofenac Sodium 1 VANNESSA 4 TIMES/DAY 05/29 1400 AC 05/29 TOP 2118 Duloxetine HCl 90 MG DAILY 05/29 1227 AC 05/30 PO 1110 Enoxaparin Sodium 40 MG DAILY 05/29 1311 05/30 GA 1110 Gabapentin 300 MG 4 TIMES/DAY 05/29 1400 AC 05/30 PO 2040 Insulin Aspart 0 TIDAC/HS 05/30 1200 05/30 SC 2039 Insulin Aspart 7 UNITS ONCE ONE 05/30 0915 MT 05/30 SC 05/30 0916 0918 Insulin Detemir 12 UNITS BID 05/30 1000 05/30 SC 2040 Insulin Human Regular 100 UNIT Q24H 05/29 2330 MT 05/30 Sodium Chloride 100 ML IV 0601 Levothyroxine Sodium 0.075 MG Gregg@0705/31 0700 05/31 PO 0619 Levothyroxine Sodium 0.15 MG MoTuWeThFrSa@0705/30 0700 05/30 PO 0552 Lisinopril 30 MG DAILY 05/29 1225 05/29 PO 1447 Morphine Sulfate 2 MG Q4P PRN 05/29 1315 05/31 IV 0333 Neomycin/Polymyxin/ 4 GTT Q8 05/30 1400 AC 05/31 Bacitr/Hydrocort OTIC 0509 Omeprazole 20 MG DAILY 05/30 0936 05/31 PO 0619 Ondansetron HCl 4 MG Q8P PRN 05/29 1315 AC IV Piperacillin Sod/ 3.375 GM Q6H 05/30 1700 05/31 Tazobactam Sod IV 0509 Sodium Chloride 100 ML Piperacillin Sod/ 3.375 GM Q6H 05/29 1930 MT 05/30 Tazobactam Sod IV 1100 Sodium Chloride 100 ML Potassium Chloride 20 MEQ Q13H 05/30 1415 05/30 Dextrose/Sodium 1,000 ML IV 2040 Chloride Potassium Chloride 20 MEQ Q5H 05/30 0045 MT 05/30 Dextrose/Sodium 1,000 ML IV 0835 Chloride Potassium Phosphate 15 mMol ONE ONE 05/30 0630 MT 05/30 Dextrose/Water 250 ML IV 05/30 1033 1111 Pravastatin Sodium 40 MG QPM 05/29 2200 05/30 PO 2040 Last 24 Hrs of Lab/Txe Results Last 24 Hrs of Labs/Mics: Laboratory Tests 05/30/16 1655: Anion Gap 4 L, Estimated GFR > 60, Glucose 171 H, Calcium 8.4, Phosphorus 2.2 L, Magnesium 1.9, Total Bilirubin 0.5, AST 25, ALT 48, Albumin 2.5 L Assessment/Plan Assessment: She is a middle-aged woman the past medical history of type I diabetes (on Omni pod insulin pump), previous DKA, peripheral neuropathy, hypertension was being evaluated for epigastric pain and worsening right ear pain (failed Augmentin therapy). At the time of admission, glucose was 471, bicarbonate 6, potassium 6.2 and anion gap of 22. Differential diagnosis: #1 DKA #2 otitis media/otitis externa Below is the problem list and plan: #1 DKA-resolved. Blood sugars-98, 178. Currently on 12 units of Levemir twice a day, and insulin sliding scale. Adequate by mouth intake. Accu-Cheks. Potassium 3.8. #2 acute otitis media/otitis externa-CAT scan findings revealed developing right -sided otitis media. Cerumen impaction in the external ear. Currently on Zosyn for Pseudomonas coverage. Evaluation of otitis media as an outpatient as per ENT consult notes. Currently afebrile. Discuss with ID for conversation on the choice of by mouth antibiotics at the time of discharge. #3 hypothyroidism-continue Synthroid. #4 hypertension-continue home dose of lisinopril. Also continue home dose of gabapentin for neuropathy. Problem List: 1. Otitis externa of right ear 2. DKA (diabetic ketoacidoses) 3. Otitis media Pain Ratin Pain Location: Right ear Pain Goal: Pain 4 or less Pain Plan: Tylenol when necessary, gabapentin Tomorrow's Labs & Rationales: CBC to monitor for leukocytosis Basic electrolyte printed circuit board panels trimmer for potassium. LIZET CARO,NATALI 05/31/16 1443: Attending MD Review Statement Attending Statement Attending MD Statement: examined this patient, discuss w/resident/PA/CUSTODIAN ATHLETIC EQUIPMENT, agreed w/resident/PA/CUSTODIAN [employer]THLETIC EQUIPMENT, discussed with family, reviewed EMR data (avail), discussed with nursing, amended to note Attending Assessment/Plan: Patient seen and examined. Transferred out of the ICU yesterday. Resting comfortably and not in acute distress. She reports improvement of the pain in the right ear. She still reports some drainage from the ear. H on examination nothing acute distress er blood glucose levels are better controlled. She is afebrile and hemodynamically stable. On examination there is no erythema of the pinna. There is no discharge. Recommendations: -Continue IV Zosyn. If patient remains afebrile and hemodynamically stable she will be transitioned to oral antibiotics -Discontinue IV morphine and begin patient on Percocet for pain control. -Continue insulin regimen as recommended by the endocrinology service. -She has mold growing from the cultures. ? Significance. Please consult with the ID service. -Anticipate discharge home in the next 24 hours.
[2016-05-31 08:58] LABS: ABSOLUTE BASOPHIL COUNT 0 /CUMM (0.0-0.2); ABSOLUTE EOSINOPHIL COUNT 0.1 /CUMM (0.0-0.7); ABSOLUTE GRANULOCYTE CT 3.6 /CUMM (1.4-6.5); ABSOLUTE LYMPH COUNT 2.6 /CUMM (1.2-3.4); ABSOLUTE MONOCYTE COUNT 0.5 /CUMM (0.10-0.60); BASOPHIL % 0.3 % (0.0-2.0); EOSINOPHIL % 1.8 % (0-5); HEMATOCRIT 32.8 % (37-47); MEAN CORPUSCULAR HGB 27.1 PG (27.0-31.0); MEAN CORPUSCULAR HGB CONC 33.2 G/DL (33.0-37.0); MEAN CORPUSCULAR VOLUME 81.7 FL (81.0-99.0); MEAN PLATELET VOLUME 8.7 FL (7.4-10.4); PLATELET COUNT 282 /CUMM (130-400); RBC DISTRIBUTION WIDTH 17.7 % (11.5-14.5); RED BLOOD CELL CT 4.02 /CUMM (4.20-5.40); WHITE BLOOD CELL COUNT 6.7 /CUMM (4.8-10.8)
--- NOTE | 2016-05-31 09:13 | PN- Diabetes ---
Assessment/Plan Assessment: Patient continues to improve. She is presently on Levemir 12 units twice a day as a basal insulin. In addition she is on sliding scale NovoLog before meals with a separate sliding-scale at bedtime. The patient's blood sugars are in fairly good control. Her sugar this morning before breakfast was 150. The patient can then use on IV antibiotics for her middle and external ear infection. Plan: Suggest continue the present insulin regimen. Continue on antibiotics. If the patient is discharged she will resume her insulin pump at home. I discussed with her using a temporary basal of 60-70% for a few hours since she will have some Levemir onboard when she goes home. She will need to monitor her sugars very carefully and can call the office if she has any problems. Subjective Subjective: Your pain a little better Review of Systems Constitutional: Denies: chills, fever. Cardiovascular: Denies: chest pain. Respiratory: Denies: short of breath. Gastrointestinal: Denies: nausea, vomiting. Skin: Reports: no symptoms. Objective Last 24 Hrs of Vital Signs/I&O Vital Signs Date Time Temp Pulse Resp B/P Pulse O2 O2 Flow FiO2 Ox Delivery Rate 05/31 0840 74 118/80 05/31 0638 97.8 74 18 118/80 95 Room Air 05/303 97.9 100 20 112/60 97 Room Air 05/30 2009 97.9 100 20 112/60 97 Air 05/30 1600 100 Air 05/30 1600 97.2 84 15 118/64 100 Room Air 05/30/56 Intake & Output 05/31 0805/31 0000 Intake Total 1140 1062 Output Total 350 700 Balance 790 362 Intake, IV 800 722 Intake, Oral 340 340 Number 0 0 Bowel Movements Output, Urine 350 700 Vital Signs Date Time Temp Pulse Resp B/P Pulse O2 O2 Flow FiO2 Ox Delivery Rate 05/31 0740 74 118/80 05/31 0638 97.8 74 18 118/80 95 Room Air 05/30 2243 97.9 100 20 112/60 97 Room Air 05/30 2009 97.9 100 20 112/60 97 Room Air 05/30 1600 100 Air 05/30 1600 97.2 84 15 118/64 100 Room Air 05/30 1122 90/56 Intake & Output 05/31 1600 05/31 0800 05/31 0000 Intake Total 1140 1062 Output Total 350 700 Balance 790 362 Intake, IV 800 722 Intake, Oral 340 340 Number 0 0 Bowel Movements Output, Urine 350 700 Physical Exam General Appearance: well developed/nourished Neck: normal inspection Respiratory: normal breath sounds Cardiovascular: regular rate/rhythm Abdomen: normal bowel sounds Extremities: normal inspection Current Medications: Current Medications Sig/Regine Start time Last Medication Dose Route Stop Time Status Admin Acetaminophen 650 MG Q6P PRN 05/29 1315 PO Acetaminophen 1,000 MG Q6P PRN 05/29 1315 AC 05/30 IV 0840 Diclofenac Sodium 1 VANNESSA 4 TIMES/DAY 05/29 1400 05/29 TOP 2118 Duloxetine HCl 90 MG DAILY 05/29 1227 05/31 PO 0840 Enoxaparin Sodium 40 MG DAILY 05/29 1311 05/31 SC 0839 Gabapentin 300 MG 4 TIMES/DAY 05/29 1400 AC 05/31 PO 0840 Insulin Aspart 0 TIDAC/HS 05/30 1200 05/31 SC 0839 Insulin Aspart 7 UNITS ONCE ONE 05/30 0915 NJ 05/30 PR 05/30 0916 0918 Insulin Detemir 12 UNITS BID 05/30 1000 05/31 SC 0838 Insulin Human Regular 100 UNIT Q24H 05/29 2330 NJ 05/30 Sodium Chloride 100 ML IV 0601 Levothyroxine Sodium 0.075 MG Gregg@0705/31 0700 05/31 PO 0619 Levothyroxine Sodium 0.15 MG MoTuWeThFrSa@0700 05/30 0700 05/30 PO 0552 Lisinopril 30 MG DAILY 05/29 1225 05/31 PO 0840 Morphine Sulfate 2 MG Q4P PRN 05/29 1315 05/31 IV 0841 Neomycin/Polymyxin/ 4 GTT Q8 05/30 1400 AC 05/31 Bacitr/Hydrocort OTIC 0509 Omeprazole 20 MG DAILY AC 05/30 0936 05/31 PO 0619 Ondansetron HCl 4 MG Q8P PRN 05/29 1315 IV Piperacillin Sod/ 3.375 GM Q6H 05/30 1700 AC 05/31 Tazobactam Sod IV 0509 Sodium Chloride 100 ML Piperacillin Sod/ 3.375 GM Q6H 05/29 1930 NJ 05/30 Tazobactam Sod IV 1100 Sodium Chloride 100 ML Potassium Chloride 20 MEQ Q13H 05/30 1415 AC 05/30 Dextrose/Sodium 1,000 ML IV 2040 Chloride Potassium Chloride 20 MEQ Q5H 05/30 0045 DC 05/30 Dextrose/Sodium 1,000 ML IV 0835 Chloride Potassium Phosphate 15 mMol ONE ONE 05/30 0630 DC 05/30 Dextrose/Water 250 ML IV 05/30 1033 1111 Pravastatin Sodium 40 MG QPM 05/29 2200 AC 05/30 PO 2040 Findings Pertinent Lab/Tex Results: Laboratory Tests 05/31 05/30 0820 1655 Chemistry Sodium (137 - 145 mmol/L) Pending 137 Potassium (3.5 - 5.1 mmol/L) Pending 4.1 Chloride (98 - 107 mmol/L) Pending 112 H Carbon Dioxide (22 - 30 mmol/L) Pending 21 L Anion Gap (5 - 16) Pending 4 L BUN (7 - 17 mg/dL) Pending 7 Creatinine (0.5 - 1.0 mg/dL) Pending 0.7 Estimated GFR (>60 ml/min) > 60 BUN/Creatinine Ratio Pending Glucose (65 - 99 mg/dL) 171 H Calcium (8.4 - 10.2 mg/dL) 8.4 Phosphorus (2.5 - 4.5 mg/dL) 2.2 L Magnesium (1.6 - 2.3 mg/dL) 1.9 Total Bilirubin (0.2 - 1.3 mg/dL) 0.5 AST (14 - 36 U/L) 25 ALT (9 - 52 U/L) 48 Albumin (3.5 - 5.0 g/dL) 2.5 L Hematology CBC w Diff NO MAN DIFF REQ WBC (4.8 - 10.8 /CUMM) 6.7 RBC (4.20 - 5.40 /CUMM) 4.02 L Hgb (12.0 - 16.0 G/DL) 10.9 L Hct (37 - 47 %) 32.8 L MCV (81.0 - 99.0 FL) 81.7 MCH (27.0 - 31.0 PG) 27.1 RDW (11.5 - 14.5 %) 17.7 H Plt Count (130 - 400 /CUMM) 282 MPV (7.4 - 10.4 FL) 8.7 Gran % (42.2 - 75.2 %) 53.0 Lymphocytes % (20.5 - 51.1 %) 37.9 Monocytes % (1.7 - 9.3 %) 7.0 Eosinophils % (0 - 5 %) 1.8 Basophils % (0.0 - 2.0 %) 0.3 Absolute Granulocytes (1.4 - 6.5 /CUMM) 3.6 Absolute Lymphocytes (1.2 - 3.4 /CUMM) 2.6 Absolute Monocytes (0.10 - 0.60 /CUMM) 0.5 Absolute Eosinophils (0.0 - 0.7 /CUMM) 0.1 Absolute Basophils (0.0 - 0.2 /CUMM) 0 PUBS MCHC (33.0 - 37.0 G/DL) 33.2
[2016-05-31 14:00] VITALS: BP 122/70
[2016-05-31 22:18] VITALS: BP 136/76
[2016-06-01 06:00] VITALS: BP 138/70
--- NOTE | 2016-06-01 07:26 | PN- Housestaff ---
See Addendum Subjective Follow-up For: - Right ear infection - dka Subjective: Ms Grullon, was comfortable this am. No complaints. No ear discharge. Remained afebrile. Blood glucose -100, 87. was currently on 12 units of Levemir twice a day. Review of Systems Constitutional: Reports: see HPI. Objective Last 24 Hrs of Vital Signs/I&O Vital Signs Date Time Temp Pulse Resp B/P Pulse O2 O2 Flow FiO2 Ox Delivery Rate 06/01 0600 97.8 80 18 138/70 97 Room Air 05/31 2218 97.3 83 18 136/76 98 Room Air 05/31 1400 96.5 80 16 122/70 96 Room Air 05/31 0840 74 118/80 Intake & Output 06/01 0800 06/01 0000 05/31 1600 Intake Total 1150 1080 Output Total Balance 1150 1080 Intake, IV 700 600 Intake, Oral 450 480 Number 0 Bowel Movements Physical Exam General Appearance: No Acute Distress Other Physical Findings: General Exam: AAOx3, No acute distress, Skin: No rashes, no breakdown HEENT: PERRLA, EOMI, Ear discharge(light yellow). Neck: Supple, No JVD No cervical lymphadenopathy CVS: Reg Rate, Normal S1,S2, No MGR Resp: Normal air entry, no ronchi/rales Abdomen: Soft, No tenderness, Normal Bowel Sounds Neuro: Normal Speech, Strength 5/5 b/l x 4 extremities, Sensation intact, CN III -XII NL, Reflexes 2+ Extremities: No cyanosis, pedal edema Current Medications: Current Medications Sig/Regien Start time Last Medication Dose Route Stop Time Status Admin Acetaminophen 650 MG Q6P PRN 05/29 1315 AC PO Acetaminophen 1,000 MG Q6P PRN 05/29 1315 AC 05/30 IV 0840 Diclofenac Sodium 1 VANNESSA 4 TIMES/DAY 05/29 1400 AC 05/29 TOP 2118 Duloxetine HCl 90 MG DAILY 05/29 1227 AC 05/31 PO 0840 Enoxaparin Sodium 40 MG DAILY 05/29 1311 AC 05/31 SC 0839 Gabapentin 300 MG 4 TIMES/DAY 05/29 1400 AC 05/31 PO 2149 Insulin Aspart 0 TIDAC/HS 05/30 1200 AC 05/31 SC 1709 Insulin Detemir 12 UNITS BID 05/30 1000 AC 05/31 SC 2149 Levothyroxine Sodium 0.075 MG Gregg@0705/31 0700 AC 05/31 PO 0619 Levothyroxine Sodium 0.15 MG MoTuWeThFrSa@0705/30 0700 AC 06/01 PO 0636 Lisinopril 30 MG DAILY 05/29 1225 AC 05/31 PO 0840 Morphine Sulfate 2 MG Q4P PRN 05/29 1315 DC 05/31 IV 1254 Neomycin/Polymyxin/ 4 GTT Q8 05/30 1400 AC 06/01 Bacitr/Hydrocort OTIC 0635 Omeprazole 20 MG DAILY AC 05/30 0936 AC 06/01 PO 0636 Ondansetron HCl 4 MG Q8P PRN 05/29 1315 AC IV Oxycodone/ 1 TAB Q6P PRN 05/31 1630 AC 06/01 Acetaminophen PO 0257 Phosphate 250 MG ONCE ONE 05/31 1300 DC 05/31 PO 05/31 1301 1822 Piperacillin Sod/ 3.375 GM Q6H 05/30 1700 AC 06/01 Tazobactam Sod IV 0635 Sodium Chloride 100 ML Potassium Chloride 20 MEQ Q13H 05/30 1415 AC 06/01 Dextrose/Sodium 1,000 ML IV 0254 Chloride Pravastatin Sodium 40 MG QPM 05/29 2200 AC 05/31 PO 2149 Last 24 Hrs of Lab/Tex Results Last 24 Hrs of Labs/Mics: Laboratory Tests 06/01/16 0700: Sodium Pending, Potassium Pending, Chloride Pending, Carbon Dioxide Pending, Anion Gap Pending, BUN Pending, Creatinine Pending, BUN/Creatinine Ratio Pending , CBC w Diff Pending, WBC Pending, RBC Pending, Hgb Pending, Hct Pending, MCV Pending, MCH Pending, RDW Pending, Plt Count Pending, MPV Pending, PUBS MCHC Pending 05/31/16 0820: Anion Gap 5, Estimated GFR > 60, BUN/Creatinine Ratio 7.1, Phosphorus 2.4 L, Magnesium 1.9, CBC w Diff NO MAN DIFF REQ, RBC 4.02 L, MCV 81.7, MCH 27.1, RDW 17.7 H, MPV 8.7, Gran % 53.0, Lymphocytes % 37.9, Monocytes % 7.0, Eosinophils % 1.8, Basophils % 0.3, Absolute Granulocytes 3.6, Absolute Lymphocytes 2.6, Absolute Monocytes 0.5, Absolute Eosinophils 0.1, Absolute Basophils 0, PUBS MCHC 33.2 Assessment/Plan Assessment: She is a middle-aged woman the past medical history of type I diabetes (on Omni pod insulin pump), previous DKA, peripheral neuropathy, hypertension was being evaluated for epigastric pain and worsening right ear pain (failed Augmentin therapy). At the time of admission, glucose was 471, bicarbonate 6, potassium 6.2 and anion gap of 22. Differential diagnosis: #1 DKA #2 otitis media/otitis externa Below is the problem list and plan: #1 DKA-resolved. Blood sugars-87,100. Since the blood sugars were low, levemir was discontinued. She was discharged with recommendation to restart her insulin pump. Adequate by mouth intake. Accu-Cheks. #2 acute otitis media/otitis externa-CAT scan findings revealed developing right -sided otitis media. Pt was on Zosyn, which was changed to augmentin as per ID recommendation. Evaluation of otitis media as an outpatient as per ENT consult notes. Currently afebrile. #3 hypothyroidism-continue Synthroid. #4 hypertension-continue home dose of lisinopril. Also continue home dose of gabapentin for neuropathy. Problem List: 1. Diabetes mellitus Pain Ratin Pain Location: right ear Pain Goal: Pain 4 or less Pain Plan: tylenol prn Tomorrow's Labs & Rationales: no labs necessary. pt to be discharged.
[2016-06-01 07:56] LABS: ABSOLUTE BASOPHIL COUNT 0.1 /CUMM (0.0-0.2); ABSOLUTE EOSINOPHIL COUNT 0.1 /CUMM (0.0-0.7); ABSOLUTE GRANULOCYTE CT 2.7 /CUMM (1.4-6.5); ABSOLUTE LYMPH COUNT 2.5 /CUMM (1.2-3.4); ABSOLUTE MONOCYTE COUNT 0.6 /CUMM (0.10-0.60); BASOPHIL % 1.3 % (0.0-2.0); EOSINOPHIL % 2.3 % (0-5); GRANULOCYTE % 45.5 % (42.2-75.2); HEMATOCRIT 34.4 % (37-47); MEAN CORPUSCULAR HGB 26.8 PG (27.0-31.0); MEAN CORPUSCULAR HGB CONC 32.8 G/DL (33.0-37.0); MEAN CORPUSCULAR VOLUME 81.9 FL (81.0-99.0); MEAN PLATELET VOLUME 8.5 FL (7.4-10.4); PLATELET COUNT 299 /CUMM (130-400); RBC DISTRIBUTION WIDTH 17.8 % (11.5-14.5); WHITE BLOOD CELL COUNT 5.9 /CUMM (4.8-10.8)
--- NOTE | 2016-06-01 08:50 | PN- Diabetes ---
Assessment/Plan Assessment: Patient continues to improve. She is presently on Levemir 12 units twice a day as a basal insulin. In addition she is on sliding scale NovoLog before meals with a separate sliding-scale at bedtime. Her FSGs were 150, 235, 147, 100 and 87. IVF was discontinued. Patient probably will go home today. Plan: 1. DM: --- continue the current insulin regimen as inpatient; ---if she goes home today, am Levemir will be held, patient will be reconnected to the insulin pump. ---f/u in office after discharge. 2. thyroid: ---continue Levothyroxine 150 mcg x 6 days and 75 mcg once a week on Wednesday. --- monitor TFT as outpatient. Subjective Subjective: She feels much better. Objective Last 24 Hrs of Vital Signs/I&O Vital Signs Date Time Temp Pulse Resp B/P Pulse O2 O2 Flow FiO2 Ox Delivery Rate 06/01 0600 97.8 80 18 138/70 97 Room Air 05/31 2218 97.3 83 18 136/76 98 Room Air 05/31 1400 96.5 80 16 122/70 96 Room Air Intake & Output 06/01 1600 06/01 0800 06/01 0000 Intake Total 1100 1150 Output Total 350 Balance 750 1150 Intake, IV 800 700 Intake, Oral 300 450 Number 0 Bowel Movements Output, Urine 350 Findings Pertinent Lab/Tex Results: Laboratory Tests 06/01 0700 Chemistry Sodium (137 - 145 mmol/L) 142 Potassium (3.5 - 5.1 mmol/L) 3.7 Chloride (98 - 107 mmol/L) 109 H Carbon Dioxide (22 - 30 mmol/L) 25 Anion Gap (5 - 16) 7 BUN (7 - 17 mg/dL) 7 Creatinine (0.5 - 1.0 mg/dL) 0.7 Estimated GFR (>60 ml/min) > 60 BUN/Creatinine Ratio (7 - 25 %) 10.0 Hematology CBC w Diff NO MAN DIFF REQ WBC (4.8 - 10.8 /CUMM) 5.9 RBC (4.20 - 5.40 /CUMM) 4.20 Hgb (12.0 - 16.0 G/DL) 11.3 L Hct (37 - 47 %) 34.4 L MCV (81.0 - 99.0 FL) 81.9 MCH (27.0 - 31.0 PG) 26.8 L RDW (11.5 - 14.5 %) 17.8 H Plt Count (130 - 400 /CUMM) 299 MPV (7.4 - 10.4 FL) 8.5 Gran % (42.2 - 75.2 %) 45.5 Lymphocytes % (20.5 - 51.1 %) 41.5 Monocytes % (1.7 - 9.3 %) 9.4 H Eosinophils % (0 - 5 %) 2.3 Basophils % (0.0 - 2.0 %) 1.3 Absolute Granulocytes (1.4 - 6.5 /CUMM) 2.7 Absolute Lymphocytes (1.2 - 3.4 /CUMM) 2.5 Absolute Monocytes (0.10 - 0.60 /CUMM) 0.6 Absolute Eosinophils (0.0 - 0.7 /CUMM) 0.1 Absolute Basophils (0.0 - 0.2 /CUMM) 0.1 PUBS MCHC (33.0 - 37.0 G/DL) 32.8 L
[2016-06-01 09:12] VITALS: BP 140/70
--- NOTE | 2016-06-01 10:23 | Patient Discharge Instructions ---
Discharge Instructions General Discharge Information You were seen/treated for: 1. Diabetic Ketoacidosis 2. Ear infection Watch for these problems: 1. Ear discharge 2. Severe pain in right ear 3. Abdominal pain, vomiting Special Instructions: 1. Please see your pcp within one week of discharge. 2. Please see your ENT within one week of discharge. 3. Please see your roll coverer within one week of discharge. Acute Coronary Syndrome Inclusion Criteria At DC or during hospital stay patient has or had the following: ACS DIAGNOSIS No Discharge Core Measures Meds if any: Prescribed or Continued at Discharge Meds if any: NOT Prescribed or Continued at Discharge Congestive Heart Failure Inclusion Criteria At DC or during hospital stay patient has or had the following: CHF DIAGNOSIS No Discharge Core Measures Meds if any: Prescribed or Continued at Discharge Meds if any: NOT Prescribed or Continued at Discharge Cerebrovascular accident Inclusion Criteria At DC or during hospital stay patient has or had the following: CVA/TIA Diagnosis No Discharge Core Measures Meds if any: Prescribed or Continued at Discharge Meds if any: NOT Prescribed or Continued at Discharge Venous thromboembolism Inclusion Criteria VTE Diagnosis No VTE Type NONE VTE Confirmed by (Test) NONE Discharge Core Measures - Per Current guidelines, there needs to be overlap - treatment for the first 5 days of Warfarin therapy. - If discharged on Warfarin prior to 5 days of - overlap therapy, the patient will need to be - assessed for post discharge needs including - *Post discharge parental anticoagulation - *Warfarin and/or parental anticoagulation education - *Follow up date to check INR post discharge At least 5 days overlap therapy as Inpatient No Meds if any: Prescribed or Continued at Discharge Note: Overlap Therapy is Warfarin and Anticoagulant Meds if any: NOT Prescribed or Continued at Discharge
[2016-06-01] MEDS ORDERED: CIPROFLOXACIN750 M1 PO (10:29)
[2016-06-01] MEDS ORDERED: NEOMYCIN-POLYMY10 M1 OTIC (10:32)
--- NOTE | 2016-06-01 10:32 | NUR ---
PT RESTING COMFORTABLY IN BED. REPORTS MILD TO MODERATE RIGHT EAR PAIN THAT IS CONTROLLED WELL BY PERCOCET. DENIES ANY OTHER ISSUES AT THIS TIME.
--- NOTE | 2016-06-01 12:14 | Cons- Infect Disease ---
General Information and HPI Consulting Request Date of Consult: 06/01/16 Requested By: CHUCKY SHAH MD Reason for Consult: Ear drainage positive for mold Source of Information: patient, old records History of Present Illness: This is a 50-year-old woman with diabetes, psoriatic arthritis, recurrent cellulitis of the lower extremities, osteomyelitis of the left toe, and liver abscess, begun on Augmentin 4 days prior to admission for a right otitis media, seen in the emergency room on the next day with severe right ear pain, discharged on Percocet and advised to continue the Augmentin, admitted on October 27 with continued right ear pain, nausea, vomiting, mild abdominal discomfort and one loose stool for several days. On admission she was afebrile. Laboratory data revealed a white blood cell count of 12,000, glucose 471, BUN/ creatinine 20 and 0.9, sodium 126, potassium 6.2, CO2 6, acetone +1:16, lipase normal, alk phosphatase 174, AST/ALT 21 and 64. Urinalysis rare RBC/rare WBCs. Chest x-ray was negative. CT of the head revealed patchy opacities of several right posterior mastoid air cells, with questionable minimal fluid within the right middle ear. She was begun on an Insulin drip and given a dose of Ceftriaxone. This was then changed to Zosyn which has been continued to the present. She was evaluated by ENT who felt that she had an otitis media. She has remained afebrile since admission and white blood cell count quickly normalized. She has improved with resolution of her DKA and presently has minimal pain in the right ear. Allergies/Medications Allergies: Coded Allergies: No Known Allergies (01/27/16) Home Med List: Chlordiazepoxide HCl 25 MG CAPSULE 2 CAP PO Q8P ETOH 2 TABS 3 TIMES DAILY FOR 1 DAY 2 TABS 2 TIMES DAILY FOR 1 DAY 2 TABS DAILY FOR 1 DAY Ciprofloxacin HCl 750 MG TABLET 1 TAB PO BID Ear infection Cyanocobalamin (Vitamin B-12) (Cyanocobalamin Injection) 1,000 MCG/ML VIAL 1 ML IM Q30D SUPPLEMENT (Reported) Duloxetine HCl 30 MG CAPSULE.DR 3 CAP PO DAILY MENTAL HEALTH (Reported) Gabapentin 300 MG CAPSULE 1 CAP PO 4 TIMES/DAY NEUROPATHY/ANXIETY (Reported) Insulin Lispro (Humalog) 100 UNIT/ML VIAL 0 SC DIABETES (Reported) HUMALOG VIA PUMP Levothyroxine Sodium 150 MCG TABLET 1 TAB PO DAILY THYROID (Reported) Lisinopril 30 MG TABLET 1 TAB PO DAILY BP (Reported) Neomycin/Polymyxin B Sulf/Hc (Vdiwenbu-Kzuetfiur-Fv Ear Susp) 3.5 MG/ML-10,000 UNIT/ML-1 % DROPS.SUSP 4 GTT OTIC Q8 ear infection Pravastatin Sodium (Pravastatin) 40 MG TAB 1 TAB PO AT BEDTIME HYPERCHOLESTROLEMIA (Reported) Tapentadol HCl (Nucynta) 50 MG TABLET 1 TAB PO 4 TIMES/DAY PAIN (Reported) Past History Travel History Traveled to [place] past 21 day No Medical History Blood Transfusion Hx: No Neurological: peripheral neuropathy (lower extremities), PERIPHERAL NEUROPATHY Cardiovascular: hypertension Respiratory: pneumonia Gastrointestinal: constipation Hepatic: LIVER ABSCESS Renal: NONE Musculoskeletal: fracture (RIGHT ANKLE), osteoarthritis, psoariatic arthritis, R SHOULDER, osteomyelitis of the left fifth toe s/p rt ankle fx/screws s/p rt shoul fx/surg Psychiatric: chronic pain disorder, insomnia Endocrine: diabetes, hypothyroidism Blood Disorders: anemia Cancer(s): NONE CARPENTERS/Reproductive: NONE History of MRSA: No History of VRE: No History of CDIFF: No Isolation History: Standard Influenza Vaccine: 02/01/16 Surgical History Surgical History: cholecystectomy, status post gastric bypass surgery 2004 status post right shoulder surgery with hardware in place right ankle screws right shoulder screws Family History Relations & Conditions If Any: MOTHER FH: HTN (hypertension) FH: type 2 diabetes mellitus Psychosocial History Where Do You Live? Home Services at Home: None Primary Language: Samoan Smoking Status: Never Smoked ETOH Use: denies use Illicit Drug Use: denies illicit drug use Functional Ability ADLs Independent: dressing, eating, toileting, bathing. Ambulation: independent IADLs Independent: shopping, housework, finances, food prep, telephone, transportation , medication admin. Review of Systems Review of Systems All Other Systems: Reviewed and Negative Exam & Diagnostic Data Last 24 Hrs of Vital Signs/I&O Vital Signs Date Time Temp Pulse Resp B/P Pulse O2 O2 Flow FiO2 Ox Delivery Rate 06/01 0912 80 140/70 06/01 0600 97.8 80 18 138/70 97 Room Air 05/31 2218 97.3 83 18 136/76 98 Room Air 05/31 1400 96.5 80 16 122/70 96 Room Air Intake & Output 06/01 1600 06/01 0800 06/01 0000 Intake Total 1100 1150 Output Total 350 Balance 750 1150 Intake, IV 800 700 Intake, Oral 300 450 Number 0 Bowel Movements Output, Urine 350 Physical Exam Other Physical Findings: She is awake and alert in no acute distress. She is afebrile. Skin chronic changes to the lower extremities, with no rash. HEENT exam is negative, with no inflammation of the right pinna. Neck is supple with no adenopathy. Lungs are clear. Heart regular rhythm with no murmur. Abdomen is soft, nontender with positive bowel sounds. Back no CVA tenderness. Extremities no cyanosis, clubbing or edema. Neuro is without focality. Last 24 Hours of Lab Results: Laboratory Tests 06/01 0700 Chemistry Sodium (137 - 145 mmol/L) 142 Potassium (3.5 - 5.1 mmol/L) 3.7 Chloride (98 - 107 mmol/L) 109 H Carbon Dioxide (22 - 30 mmol/L) 25 Anion Gap (5 - 16) 7 BUN (7 - 17 mg/dL) 7 Creatinine (0.5 - 1.0 mg/dL) 0.7 Estimated GFR (>60 ml/min) > 60 BUN/Creatinine Ratio (7 - 25 %) 10.0 Hematology CBC w Diff NO MAN DIFF REQ WBC (4.8 - 10.8 /CUMM) 5.9 RBC (4.20 - 5.40 /CUMM) 4.20 Hgb (12.0 - 16.0 G/DL) 11.3 L Hct (37 - 47 %) 34.4 L MCV (81.0 - 99.0 FL) 81.9 MCH (27.0 - 31.0 PG) 26.8 L RDW (11.5 - 14.5 %) 17.8 H Plt Count (130 - 400 /CUMM) 299 MPV (7.4 - 10.4 FL) 8.5 Gran % (42.2 - 75.2 %) 45.5 Lymphocytes % (20.5 - 51.1 %) 41.5 Monocytes % (1.7 - 9.3 %) 9.4 H Eosinophils % (0 - 5 %) 2.3 Basophils % (0.0 - 2.0 %) 1.3 Absolute Granulocytes (1.4 - 6.5 /CUMM) 2.7 Absolute Lymphocytes (1.2 - 3.4 /CUMM) 2.5 Absolute Monocytes (0.10 - 0.60 /CUMM) 0.6 Absolute Eosinophils (0.0 - 0.7 /CUMM) 0.1 Absolute Basophils (0.0 - 0.2 /CUMM) 0.1 PUBS MCHC (33.0 - 37.0 G/DL) 32.8 L Last 24 Hours of Tex Results: Blood cultures 2 May 29 negative Rapid flu swab May 29 negative Right ear drainage May 29 positive for mold Urine culture May 30 negative Diagnostic Data Recent Imaging Findings: Chest x-ray May [address] of the head May 29 revealed patchy opacities of several right posterior mastoid air cells, with questionable minimal fluid within the right middle ear. Assessment/Plan Assessment/Plan Impression: This is a 50-year-old diabetic woman diagnosed with right otitis media 4 days prior to admission and begun on Augmentin admitted on May 29 with nausea, vomiting and abdominal pain as well as persistent right ear pain, found to be in DKA, afebrile with a mild leukocytosis, with rapid improvement after an insulin drip and broad-spectrum antibiotics and with the isolation of mold from a superficial culture of the ear drainage. The significance of this culture is unclear as it likely represents colonization or contamination and, therefore, does not require treatment, particularly given her clinical improvement without specific treatment for this. With regard to antibiotics for her otitis media, the usual organisms of concern include strep pneumoniae and Haemophilus influenza. Pseudomonas is more of a concern in processes such as malignant otitis externa; therefore her antibiotic regimen can be narrowed. Suggestion: 1. Discontinue Zosyn 2. Begin Augmentin 875 mg po every 12 hours for 3 days 3. Continue topical Cortisporin for several more days per ENT Consult Acknowledgment - Thank you for your consult request.
[2016-06-01] MEDS ORDERED: AUGMENTIN 875-1 EACH PO (13:12)
--- NOTE | 2016-06-01 13:33 | Discharge Summary ---
Visit Information Visit Dates Admission Date: 05/29/16 Discharge Date: 06/01/16 Hospital Course Course Attending Physician: CHUCKY SHAH MD Primary Care Physician: URBAN CARO,[facility] Course: Ms Grullon is a 50 yr old woman w/ a past medical history of diabetes type 1 ( Omni pod insulin pump), psoriatic arthritis, osteomyelitis of left toe, recurrent cellulitis of lower extremities, recent treatment for right otitis media (Augmentin) was admitted for right ear pain, diarrhea. At the time of admission, vitals were stable, lab findings indicated-WBC 12, glucose 471, bicarbonate 6, potassium 6.2, anion gap of 22. Acetone positive. She was admitted to ICU, and received fluids (normal saline) and was begun on insulin drip. After ketoacidosis was resolved, and she was transferred to general medicine floor for further monitoring. Radiological findings head and CAT scan revealed patchy opacification of several right posterior mastoid air cells. There was a questionable minimal fluid within the right middle ear, which was suggestive of right-sided otitis media. Admission diagnosis: #1 diabetic ketoacidosis #2 right otitis media Below is the problem list and plan: #1 hyperglycemia-after ketoacidosis was resolved, she was started on Levemir and insulin sliding scale with good glucose control, during the stay in the hospital. Tolerated diet well. #2 right otitis media-she was initially started on Zosyn which was transitioned to Augmentin to complete the course of antibiotics. Infectious disease career development consultant-Rickey Helton MD and coding consultant-Dr. Riley were consulted for advice. Malignant otitis externa was ruled out, and so the antibiotic coverage was narrowed down to cover Haemophilus influenzae. She was discharged home on Corticosporin suspension-eardrops and follow up with ENT surgeon within one week to reevaluate and clear ear canal with microscope/suction. She remained afebrile and had mild leukocytosis during the stay in the hospital. Superficial cultures-from ear canal revealed growth of mold, which could have been a contamination and no antifungal therapy was initiated. She was discharged home with recommendation to restart her insulin pump at her previous settings. Recommended her to follow up with the experimental plastics fabricator for further advice. #3 hypothyroidism- she was continued on levothyroxine. Advised her to follow up with her experimental plastics fabricator for further advice on titrating the dose of levothyroxine. Allergies: Coded Allergies: No Known Allergies (01/27/16) Pertinent Lab Results: CAT - CT HEAD W&WO IV CONTRAST 1. Patchy opacification of several right posterior mastoid air cells. This finding is entirely nonspecific but could reflect a mild acute mastoiditis. No cortical erosions or cortical destruction of the right temporal bone is identified. 2. There is questionable minimal fluid within the right middle ear, which may represent a developing right-sided otitis media. Correlate with direct visualization. 3. Soft tissue density within the right external auditory canal likely represents cerumen. Correlate with direct visualization. RAD - XRY-PORTABLE CHEST XRAY Low lung volumes without acute abnormality identified. SOURCE: HEAD/NECK ENTR: 05/29/16-[address]: CHUCKY SHAH MD [facility]: EAR RIGHT URBAN CARO,HILLARY ORDERED: HEAD/NECK CULT COMMENT: TYPE OF SPECIMEN: DEEP Procedure Result > GRAM STAIN Final 05/30/16-1508 WHITE BLOOD CELLS FEW OTHER NO ORGANISMS SEEN > HEAD AND NECK CULTURE REPORT Final 05/31/16-09 Light growth of: MOLD Disposition Summary Disposition Principal Diagnosis: Otitis media Additional Diagnosis: Diabetic ketoacidosis Discharge Disposition: home or self care Discharge Instructions General Discharge Information Code Status: Full Code Patient's Diet: As tolerated Patient's Activity: As tolerated Follow-Up Instructions/Appts: 1. Please see your pcp within one week of discharge. 2. Please see your ENT within one week of discharge. 3. Please see your experimental plastics fabricator within one week of discharge. Medications at Discharge Discharge Medications: Stop taking the following medications: Chlordiazepoxide HCl (Chlordiazepoxide HCl) 25 MG CAPSULE ORAL EVERY 8 HOURS NEEDED Qty = 12 Continue taking these medications: Pravastatin Sodium (Pravastatin) 40 MG TAB 1 Tablet ORAL AT BEDTIME Qty = 30 Comments: LAST DOSE TAKEN 03/29/14 AT 16:00 PM Insulin Lispro (Humalog) 100 UNIT/ML VIAL 0 Inject into fatty tissue Instructions: HUMALOG VIA PUMP Comments: PATIENT DID NOT RECIEVE MEDICATION WHILE HOSPITALIZED Levothyroxine Sodium (Levothyroxine Sodium) 150 MCG TABLET 1 Tablet ORAL DAILY Qty = 30 Comments: Last Taken: 06/01/16 Time: 0700 Lisinopril (Lisinopril) 30 MG TABLET 1 Tablet ORAL DAILY Qty = 30 Comments: Last Taken: 06/01/16 Time: 1000 Tapentadol HCl (Nucynta) 50 MG TABLET 1 Tablet ORAL 4 TIMES A DAY Qty = 120 Comments: NOT TAKEN Duloxetine HCl (Duloxetine HCl) 30 MG CAPSULE.DR 3 Capsule ORAL DAILY Comments: Last Taken: 06/01/16 Time: 1000 Gabapentin (Gabapentin) 300 MG CAPSULE 1 Capsule ORAL 4 TIMES A DAY Qty = 150 Comments: Last Taken: 06/01/16 Time: 1400 Cyanocobalamin (Vitamin B-12) (Cyanocobalamin Injection) 1,000 MCG/ML VIAL 1 Milliliters INTRAMUSC ONCE A MONTH Qty = 1 Comments: PER PT LAST RECEIVED MAR 2016 Start taking the following new medications: Neomycin/Polymyxin B Sulf/Hc (Aiioimmf-Armuzznpf-Es Ear Susp) 3.5 MG/ML-10,000 UNIT/ML-1 % DROPS.SUSP 4 Drop OTIC EVERY 8 HOURS Days = 10 No Refills Comments: Last Taken: 06/01/16 Time: 1400 Amoxicillin/Potassium Clav (Augmentin 875-125 Tablet) 875 MG-125 MG TABLET 1 Tablet ORAL TWICE DAILY Days = 3 No Refills Copies To: URBAN CARO,HILLARY Bradley MD Review Statement Documenting Attending: PABLO CARO,CHUCKY
== END 2016-06-01 14:40 | DRG 639 ==
LOC: ENRESERVTM → ENRESERVDT → ERH 06:59 → ERHI 11:36 → 2NA 11:36 → CRI 16:36 → 2NA 05-30 19:54
PROVIDERS: Emergency Medicine; Internal Medicine Cardiovascular Disease; Internal Medicine Endocrinology, Diabetes & Metabolism; Student in an Organized Health Care Education/Training Program; ADMIT Internal Medicine
DX: E13.10 Other specified diabetes mellitus with ketoacidosis without coma (principal); E87.5 Hyperkalemia; I10 Essential (primary) hypertension; Z96.41 Presence of insulin pump (external) (internal); Z79.4 Long term (current) use of insulin; E03.9 Hypothyroidism, unspecified; E78.5 Hyperlipidemia, unspecified; H66.91 Otitis media, unspecified, right ear; E11.42 Type 2 diabetes mellitus with diabetic polyneuropathy; L40.50 Arthropathic psoriasis, unspecified; Z83.3 Family history of diabetes mellitus
CPT/HCPCS: 2NASP; CCU; 36415; 81001; 82436; 87040; 87070; 87071; 87086; 87804; 87804-59; 93005; 93010; 96361; 96365; 96372; 96375; J0131; J0610; J0696; J1080; J1650; J1815; J2405; J2550; J7042; J7060; S5012

== ENCOUNTER 2016-11-10 15:07 | Emergency (ER) | payer OTHER ==
[~2016-11-10] VITALS: Ht 167.6 cm; Wt 74.8 kg
[~2016-11-10 15:07] MED LIST changes: +AUGMENTIN 875-1 EACH PO; +CIPROFLOXACIN750 M1 PO; +NEOMYCIN-POLYMY10 M1 OTIC
--- NOTE | 2016-11-10 15:59 | ED AMS/SEIZURE/WEAK/DIZZY ---
History of Present Illness General Chief Complaint: Altered Mental Status Stated Complaint: BIBA AMS Source: family, old records Exam Limitations: clinical condition Vital Signs & Intake/Output Vital Signs & Intake/Output Vital Signs Date Time Temp Pulse Resp B/P B/P Pulse O2 O2 Flow FiO2 Mean Ox Delivery Rate 11/10 1620 113 98/50 98 Non ReBreather 11/10 1603 98.2 113 11/10 1550 94 Non 10L ReBreather 11/10 1541 107 25 106/62 98 Non 10L ReBreather Allergies Coded Allergies: No Known Allergies (01/27/16) Reconcile Medications Amoxicillin/Potassium Clav (Augmentin 875-125 Tablet) 875 MG-125 MG TABLET 1 TAB PO BID ear infection Cyanocobalamin (Vitamin B-12) (Cyanocobalamin Injection) 1,000 MCG/ML VIAL 1 ML IM Q30D SUPPLEMENT (Reported) Duloxetine HCl 30 MG CAPSULE.DR 3 CAP PO DAILY MENTAL HEALTH (Reported) Gabapentin 300 MG CAPSULE 1 CAP PO 4 TIMES/DAY NEUROPATHY/ANXIETY (Reported) Insulin Lispro (Humalog) 100 UNIT/ML VIAL 0 SC DIABETES (Reported) HUMALOG VIA PUMP Levothyroxine Sodium 150 MCG TABLET 1 TAB PO DAILY THYROID (Reported) Lisinopril 30 MG TABLET 1 TAB PO DAILY BP (Reported) Neomycin/Polymyxin B Sulf/Hc (Dsspuald-Sbgluejfv-Zc Ear Susp) 3.5 MG/ML-10,000 UNIT/ML-1 % DROPS.SUSP 4 GTT OTIC Q8 ear infection Pravastatin Sodium (Pravastatin) 40 MG TAB 1 TAB PO AT BEDTIME HYPERCHOLESTROLEMIA (Reported) Tapentadol HCl (Nucynta) 50 MG TABLET 1 TAB PO 4 TIMES/DAY PAIN (Reported) Triage Note: BIBA FOR C/O BEING FOUND UNRESPONSIVE BY DAUGHTER EARLIER TODAY, UNKNOWN TIME. REPORTS PT HAS BEEN DRINKING DAILY AFTER BEING TOLD SHE HAS CANCER PER AT BEDSIDE. PT PRESENTS RESPONSIVE TO PAINFUL STIMULI ONLY. MEDICS REPORT GLUCOSE READ "HIGH" IN FIELD. Triage Nurses Notes Reviewed? yes Onset: Just prior to arrival Duration: minute(s):, constant, continues in ED Timing: recent history Injury Environment: home Severity: severe No Modifying Factors: none LMP (ages 10-50): unknown : No Patient currently breastfeeds: No HPI: Spouse reports patient has been increasingly depressed secondary to finding of possible tumor on her eye and has had increasing alcohol abuse and use of opiates. Prior to admission he found her obtunded and unresponsive. There is no reported fever chills nausea vomiting diarrhea abdominal pain chest pain shortness of breath headache dysuria rash bleeding. Past History Travel History Traveled to [place] past 21 day No Medical History Any Pertinent Medical History? 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 No Review of Systems Review of Systems Constitutional: Reports: see HPI, weakness. EENTM: Reports: no symptoms. Respiratory: Reports: no symptoms. Cardiovascular: Reports: no symptoms. GI: Reports: no symptoms. Genitourinary: Reports: no symptoms. Musculoskeletal: Reports: no symptoms. Skin: Reports: no symptoms. Neurological/Psychological: Reports: see HPI, confusion, weakness. Hematologic/Endocrine: Reports: no symptoms. Immunologic/Allergic: Reports: no symptoms. All Other Systems: Reviewed and Negative Physical Exam Physical Exam General Appearance: lethargic, severe distress Head: atraumatic Eyes: Bilateral: normal appearance. Ears, Nose, Throat: normal ENT inspection Neck: normal inspection, supple, full range of motion Respiratory: normal breath sounds, chest non-tender, quiet respiration, lungs clear, tachypnea Cardiovascular: regular rate/rhythm, normal peripheral pulses, norml femoral pulses equa Peripheral Pulses: 4+ carotid (R), 4+ carotid (L) Gastrointestinal: normal bowel sounds, soft, non-tender, no organomegaly Back: normal inspection, normal range of motion Extremities: normal range of motion Neurologic/Psych: disoriented x 3, motor/sensory deficits Reflexes: 2+: bicep (R), bicep (L). Skin: pallor Lymphatic: no anterior cervical jamari Core Measures ACS in differential dx? Yes ASA ordered for poss ACS? No-d/t bleeding/risk of CVA/TIA Diagnosis: No Severe Sepsis Present: No Septic Shock Present: No Progress Differential Diagnosis: drug intoxication, electrolyte imbalance, pneumonia Plan of Care: Orders Procedure Date/time Status LACTIC ACID 11/10 1826 Active MIXED VENOUS BLOOD GAS (GEN) 11/10 1526 Active BLOOD CULTURE 11/10 1526 Active URINE DRUG SCREEN FOR ER ONLY 11/10 1526 Active URINALYSIS 11/10 1526 Active TROPONIN LEVEL 11/10 1526 Active MAGNESIUM 11/10 1526 Active LACTIC ACID 11/10 1526 Active COMPREHENSIVE METABOLIC PANEL 11/10 1526 Active CBC WITHOUT DIFFERENTIAL 11/10 1526 Active ACETONE 11/10 1526 Active EKG 11/10 1515 Active Microbiology 11/10 1526 BLOOD: Blood Culture - ORD 11/10 1526 BLOOD: Blood Culture - ORD Initial ED EKG: ST elevation (inferolat, tombstones), ST depression (lateral) Comments: D/W Dr. Tony RIVERA, ED/photo lab technician . Delay in transfer due to poor IV access, patient cooperation, EMS arrival for transport. Departure Departure Time of Disposition: 1557 Disposition: OTHER [facility] Condition: Critical Clinical Impression Primary Impression: STEMI (ST elevation myocardial infarction) Qualifiers: Involved coronary artery: unspecified coronary artery Qualified Code: I21.3 - ST elevation (STEMI) myocardial infarction of unspecified site Secondary Impressions: DKA (diabetic ketoacidoses) Qualifiers: Diabetes mellitus type: other specified (including DIANN) Diabetes mellitus complication detail: with coma Qualified Code: E13.11 - Other specified diabetes mellitus with ketoacidosis with coma Referrals: HILLARY DUGGAN MD (PCP/Family) Departure Forms: Customer Survey General Discharge Information Critical Care Note Critical Care Note Critical Care Time: 30-74 min (40) Critical Care Note Critical Care Note Critical Care Time: 30-74 min (40)
[2016-11-10 16:20] VITALS: BP 98/50
== END 2016-11-10 16:30 | disposition short-term general hospital (02) ==
LOC: ERH 15:07
DX: I21.3 ST elevation (STEMI) myocardial infarction of unspecified site (principal); E10.10 Type 1 diabetes mellitus with ketoacidosis without coma
CPT/HCPCS: 80307; 87040; 93005; 93010; 96374; 96375; 99291; J1815

== ENCOUNTER 2017-05-25 13:36 | Emergency (ER) | payer OTHER ==
[~2017-05-25] VITALS: Ht 154.9 cm; Wt 74.8 kg
[2017-05-25 15:19] LABS: ABSOLUTE BASOPHIL COUNT 0 /CUMM (0.0-0.2); ABSOLUTE EOSINOPHIL COUNT 0.1 /CUMM (0.0-0.7); ABSOLUTE GRANULOCYTE CT 3.3 /CUMM (1.4-6.5); ABSOLUTE LYMPH COUNT 2.5 /CUMM (1.2-3.4); ABSOLUTE MONOCYTE COUNT 0.5 /CUMM (0.10-0.60); BASOPHIL % 0.6 % (0.0-2.0); EOSINOPHIL % 1.4 % (0-5); GRANULOCYTE % 51.8 % (42.2-75.2); HEMATOCRIT 39.6 % (37-47); MEAN CORPUSCULAR HGB 26.2 PG (27.0-31.0); MEAN CORPUSCULAR HGB CONC 31.8 G/DL (33.0-37.0); MEAN CORPUSCULAR VOLUME 82.4 FL (81.0-99.0); MEAN PLATELET VOLUME 8.6 FL (7.4-10.4); PLATELET COUNT 420 /CUMM (130-400); RBC DISTRIBUTION WIDTH 19.2 % (11.5-14.5); RED BLOOD CELL CT 4.81 /CUMM (4.20-5.40); WHITE BLOOD CELL COUNT 6.4 /CUMM (4.8-10.8)
--- NOTE | 2017-05-25 16:35 | ED GI/GU/ABDOMINAL COMPLAINT ---
History of Present Illness General Chief Complaint: Nausea, Vomiting, Diarrhea Stated Complaint: +V X 1 WEEK, CONSTIPATION Source: patient Exam Limitations: no limitations Vital Signs & Intake/Output Vital Signs & Intake/Output Vital Signs Date Time Temp Pulse Resp B/P B/P Pulse O2 O2 Flow FiO2 Mean Ox Delivery Rate 05/25 1941 97.7 89 20 176/97 98 05/25 1734 96.7 78 18 141/92 98 Room Air 05/25 1343 97.2 90 20 128/87 97 Room Air ED Intake and Output 05/26 0000 05/25 1200 Intake Total 1000 Output Total Balance 1000 Intake, IV 1000 Intake, Oral 0 Patient 165 lb Weight Weight Reported by Patient Measurement Method Allergies Coded Allergies: No Known Allergies (01/27/16) Reconcile Medications Amoxicillin/Potassium Clav (Augmentin 875-125 Tablet) 875 MG-125 MG TABLET 1 TAB PO BID ear infection Cyanocobalamin (Vitamin B-12) (Cyanocobalamin Injection) 1,000 MCG/ML VIAL 1 ML IM Q30D SUPPLEMENT (Reported) Diazepam (Valium) 5 MG TABLET 1 TAB PO BIDP PRN DIZZY Duloxetine HCl 30 MG CAPSULE.DR 3 CAP PO DAILY MENTAL HEALTH (Reported) Gabapentin 300 MG CAPSULE 1 CAP PO 4 TIMES/DAY NEUROPATHY/ANXIETY (Reported) Insulin Lispro (Humalog) 100 UNIT/ML VIAL 0 SC DIABETES (Reported) HUMALOG VIA PUMP Levothyroxine Sodium 150 MCG TABLET 1 TAB PO DAILY THYROID (Reported) Lisinopril 30 MG TABLET 1 TAB PO DAILY BP (Reported) Meclizine HCl 25 MG TABLET 1 TAB PO BIDPRN PRN DIZZY Meclizine HCl 25 MG TABLET 1 TAB PO BIDPRN PRN DIZZY Neomycin/Polymyxin B Sulf/Hc (Ihkjoegw-Mezdovdma-Al Ear Susp) 3.5 MG/ML-10,000 UNIT/ML-1 % DROPS.SUSP 4 GTT OTIC Q8 ear infection Ondansetron (Zofran Odt) 4 MG TAB.RAPDIS 1 TAB SL TID PRN NAUSEA Pravastatin Sodium (Pravastatin) 40 MG TAB 1 TAB PO AT BEDTIME HYPERCHOLESTROLEMIA (Reported) Sulfamethoxazole/Trimethoprim (Bactrim Ds Tablet) 800 MG-160 MG TABLET 1 TAB PO BID UTI Tapentadol HCl (Nucynta) 50 MG TABLET 1 TAB PO 4 TIMES/DAY PAIN (Reported) Triage Note: PT C/O HEAD SPINNING WHEN SHE WAKES UP. N/V SINCE LAST WEDNESDAY. H/A, FEELS LIKE SHE IS GOING TO PASS OUT. FEELS LIKE SHE MAY HAVE A UTI AND HASN'T HAD A BM IN 3 DAYS. Triage Nurses Notes Reviewed? yes LMP (ages 10-50): post menopausal, unknown ? N Is pt currently ? No Onset: Gradual Duration: week(s): (1), changing over time, continues in ED Timing: multiple episodes today Quality/Severity: vomiting Activities at Onset: physical activity Prior Abdominal Problems: none Past Sexual History: Unobtainable at this time No Modifying Factors: none Modifying Factors: Improves With: rest. Worsens With: movement. Associated Symptoms: fatigue, loss of appetite, nausea/vomiting, weakness, DIZZY HPI: 51-year-old female past medical history of diabetes, hypertension, presents for evaluation of dizziness, nausea, vomiting, dysuria frequency and urgency. Patient states that symptoms started about one week ago with dizziness. The dizziness is present with movement of her head and improves with rest. It is associated with nausea and vomiting. Patient states that when she is laying still without moving she does not feel dizzy. The dizziness only occurs with ambulation and movement of the head. She denies any abdominal pain chest pain shortness of breath or palpitations. She does feel like she has a urinary tract infection she's been having symptoms intermittently for the past month including dysuria frequency and urgency. No vaginal discharge back pain or fever. She's not taking any medicine for her symptoms. Her appetite has been decreased but she is taking some fluids. No changes in vision. No one-sided weakness. Past History Travel History Traveled to [place] past 21 day No Medical History Any Pertinent Medical History? see below for history Neurological: peripheral neuropathy (lower extremities), PERIPHERAL NEUROPATHY Cardiovascular: hypertension Respiratory: pneumonia Gastrointestinal: constipation Hepatic: LIVER ABSCESS Renal: NONE Musculoskeletal: fracture (RIGHT ANKLE), osteoarthritis, psoariatic arthritis, R SHOULDER, osteomyelitis of the left fifth toe s/p rt ankle fx/screws s/p rt shoul fx/surg Psychiatric: chronic pain disorder, insomnia Endocrine: diabetes, hypothyroidism Blood Disorders: anemia Cancer(s): NONE NEWCOMER HOSTESS/Reproductive: NONE History of MRSA: No History of VRE: No History of CDIFF: No Surgical History Surgical History: cholecystectomy, status post gastric bypass surgery 2004 status post right shoulder surgery with hardware in place right ankle screws right shoulder screws Psychosocial History Who do you live with Spouse Services at Home None What is your primary language Surinamese Tobacco Use: Never used ETOH Use: occasional use Illicit Drug Use: denies illicit drug use Family History Family History, If Any: MOTHER FH: HTN (hypertension) FH: type 2 diabetes mellitus Hx Contributory? No Review of Systems Review of Systems Constitutional: Reports: malaise, weakness. EENTM: Reports: no symptoms. Respiratory: Reports: no symptoms. Cardiovascular: Reports: no symptoms. GI: Reports: see HPI, nausea, vomiting. Genitourinary: Reports: see HPI, dysuria, frequency, urgency. Musculoskeletal: Reports: no symptoms. Skin: Reports: no symptoms. Neurological/Psychological: Reports: see HPI (DIZZY). Hematologic/Endocrine: Reports: no symptoms. Immunologic/Allergic: Reports: no symptoms. All Other Systems: Reviewed and Negative Physical Exam Physical Exam General Appearance: well developed/nourished, no apparent distress, alert, awake Head: atraumatic, normal appearance Eyes: Bilateral: normal appearance, PERRL, EOMI, other (HORIZONTAL NYSTAGMUS ). Ears, Nose, Throat, Mouth: hearing grossly normal, moist mucous membrane, Tympanic normal Neck: normal inspection, supple, full range of motion, NO jvd NO CAROTID BRUITS Respiratory: normal breath sounds, chest non-tender, no respiratory distress, lungs clear Cardiovascular: regular rate/rhythm, normal peripheral pulses Peripheral Pulses: 2+ radial (R), 2+ radial (L) Gastrointestinal: normal bowel sounds, soft, non-tender, no organomegaly Back: normal inspection, normal range of motion, NO cva TENDERNESS Extremities: normal range of motion Neurologic/Psych: no motor/sensory deficits, awake, alert, oriented x 3, normal gait, normal mood/affect, supervisor bit and shank department II-XII nml as tested, CEREBELLAR TESTING IS INTACT , NEGATIVE rOMBERG, Skin: intact, normal color, warm/dry Core Measures ACS in differential dx? No Sepsis Present: No Sepsis Focused Exam Completed? No Progress Differential Diagnosis: bowel obstruction, gastritis, kidney stone, pancreatitis , UTI/pyelo, VERTIGO, ARRHYTHMIA, ANEMIA, ELECTROLYTE ABNORMALITY, cva, mE NIRE' S DISEASE, LABYRINTHITIS Plan of Care: Orders Procedure Date/time Status Add-on Test (ER Only) 05/25 1705 Active MISTAKE 05/25 1705 Active EKG 05/25 170 Active Add-on Test (ER Only) 05/25 1636 Active CULTURE,URINE 05/25 1520 Active TSH REFLEX 05/25 1512 Complete TROPONIN LEVEL 05/25 1512 Complete MAGNESIUM 05/25 151 Complete URINALYSIS 05/25 1402 Complete LIPASE 05/25 1402 Complete COMPREHENSIVE METABOLIC PANEL 05/25 140 Complete CBC WITHOUT DIFFERENTIAL 05/25 140 Complete Laboratory Tests 05/25/17 1520: Urine Color YEL, Urine Clarity HAZY H, Urine pH 6.0, Ur Specific [place] >= 1.030, Urine Protein TRACE H, Urine Ketones 15 H, Urine Nitrite POS H, Urine Bilirubin NEG@ICTO, Urine Urobilinogen 0.2, Ur Leukocyte Esterase SMALL H, Ur Microscopic SEDIMENT EXAMINED, Urine WBC 1-3 H, Ur Epithelial Cells FEW, Urine Crystals 1+ CA OX H, Urine Bacteria MANY H, Urine Hemoglobin NEG, Urine Glucose 100 H 05/25/17 1512: Anion Gap 15, Estimated GFR > 60, BUN/Creatinine Ratio 28.3 H, Glucose 148 H, Calcium 9.8, Magnesium 1.8, Total Bilirubin 0.4, AST 40 H, ALT 48, Alkaline Phosphatase 122, Troponin I < 0.01, Total Protein 7.3, Albumin 4.3, Globulin 3.0 , Albumin/Globulin Ratio 1.4, Lipase 11 L, TSH &T3 &Free T4 Intrp 3.240, CBC w Diff NO MAN DIFF REQ, RBC 4.81, MCV 82.4, MCH 26.2 L, RDW 19.2 H, MPV 8.6, Gran % 51.8, Lymphocytes % 38.5, Monocytes % 7.7, Eosinophils % 1.4, Basophils % 0.6, Absolute Granulocytes 3.3, Absolute Lymphocytes 2.5, Absolute Monocytes 0.5 , Absolute Eosinophils 0.1, Absolute Basophils 0, PUBS MCHC 31.8 L Microbiology 05/25 1520 URINE ROUT: Urine Culture - RECD Patient seen and evaluated. She is having dizziness nausea and vomiting that is worse with movement of the head and ambulation. Resolves with rest. She is neurologically intact. CT scan of the brain is within normal limits. History and physical suggests peripheral vertigo. Patient was medicated with meclizine and Valium and fluids here she is feeling somewhat better. No vomiting. She is able tolerate food and fluids here. Patient was orthostatic. She was given IV fluids and fluids by mouth. She also has signs of a urinary tract infection but is afebrile without a elevated white blood cell count. No CVA tenderness no kidney stones. Patient will be covered with Bactrim. Culture sent. Advised patient to rest drink plenty of fluids meclizine and Valium Zofran as needed. Take antibiotics as directed for the full course. Make a follow-up appointment with primary care doctor for this week. Discussed return precautions patient is nontoxic-appearing and afebrile and agrees the plan. Diagnostic Imaging: Viewed by Me: CT Scan. Discussed w/RAD: CT Scan. Radiology Impression: PATIENT: NIMCO VALDEZ PRESENT AGE: 51 PATIENT ACCOUNT NO: [id number] : 65 LOCATION: [facility] ORDERING PHYSICIAN: Tenzin ALMAZAN SERVICE DATE: 05/25/17 EXAM TYPE: CAT - CT HEAD WO IV CONTRAST EXAMINATION: CT HEAD WITHOUT CONTRAST CLINICAL INFORMATION: Dizziness. COMPARISON: 05/29/2016. TECHNIQUE: Contiguous helical images of the brain were obtained without IV contrast. Multiplanar reconstructions were performed. DLP: 612 mGy-cm. FINDINGS: There are no pathologic extra-axial fluid collections. The lateral, third, fourth ventricles are nondilated and concordant with the appearance of the sulci. There is no evidence for acute intraparenchymal hemorrhage or infarct. There is neither mass nor mass effect. There is no shift of midline structures. The paranasal sinuses and mastoid air cells are clear. There are no osseous lesions. IMPRESSION: No evidence for acute intracranial injury. DICTATED BY: Brad Lopez MD DATE/TIME DICTATED:05/25/171812 SALES DATA ANALYST:SOCRATES DATE/TIME TRANSCRIBED:1812 CONFIDENTIAL, DO NOT COPY WITHOUT APPROPRIATE AUTHORIZATION., PATIENT: NIMCO VALDEZ PRESENT AGE: 51 PATIENT ACCOUNT NO: [id number] : 65 LOCATION: [facility] ORDERING PHYSICIAN: Tenzin ALMAZAN SERVICE DATE: 05/25/17 EXAM TYPE: CAT - CT ABD & PELVIS W/O IV CONTRAS EXAMINATION: CT ABDOMEN AND PELVIS WITHOUT CONTRAST CLINICAL INFORMATION: Nausea , vomiting. Decreased appetite. COMPARISON: 12/18/2014. TECHNIQUE: Contiguous axial thin section helical images of the abdomen and pelvis were performed without oral or IV contrast. The data set was reformatted in the coronal and sagittal planes and reviewed on an independent workstation. DLP: 414 mGy-cm. FINDINGS: The visualized lung bases are clear. The visualized portions of the heart are unremarkable. The liver is of normal size and attenuation without focal lesions nor intrahepatic biliary ductal dilation. The patient is status post cholecystectomy. Surgical clips are identified. Surgical chain sutures are identified in this patient status post gastric bypass. The spleen, pancreas, adrenal glands are unremarkable. Both kidneys are of normal size and attenuation without hydronephrosis or nephrolithiasis. There is no abdominal free fluid. There is neither mesenteric nor retroperitoneal lymphadenopathy. Normal unopacified loops of small and large bowel are identified. There is no pelvic free fluid. The urinary bladder is unremarkable. There is neither pelvic nor inguinal lymphadenopathy. Bone windows: Neither sclerotic nor lytic bone lesions are identified. IMPRESSION: No evidence for acute abdominal or pelvic inflammatory or infectious processes. DICTATED BY: Brad Lopez MD DATE/TIME DICTATED:05/25/171818 SALES DATA ANALYST:SOCRATES DATE/TIME TRANSCRIBED:1818 CONFIDENTIAL, DO NOT COPY WITHOUT APPROPRIATE AUTHORIZATION. Initial ED EKG: normal sinus rhythm, no ST T wave changes Departure Departure Disposition: HOME OR SELF CARE Condition: Stable Clinical Impression Primary Impression: Vertigo Secondary Impressions: UTI (urinary tract infection) Qualifiers: Urinary tract infection type: acute cystitis Hematuria presence: without hematuria Qualified Code: N30.00 - Acute cystitis without hematuria Referrals: Monroe Mohamud MD (PCP/Family) Additional Instructions: Rest, drink plenty of fluids and eat bland foods like bananas rice applesauce and toast. Make a follow-up appointment with YOUr primary care doctor is week. Use meclizine and Valium as needed for dizziness. Zofran for nausea. These may cause drowsiness. Monitor symptoms return with any concerns. Departure Forms: Customer Survey General Discharge Information Prescriptions: Current Visit Scripts Diazepam (Valium) 1 TAB PO BIDP PRN DIZZY #10 TAB Meclizine HCl 1 TAB PO BIDPRN PRN DIZZY #30 TAB Ondansetron (Zofran Odt) 1 TAB SL TID PRN NAUSEA #15 TAB Sulfamethoxazole/Trimethoprim (Bactrim Ds Tablet) 1 TAB PO BID #14 TAB Meclizine HCl 1 TAB PO BIDPRN PRN DIZZY #30 TAB
--- NOTE | 2017-05-25 18:22 | CT SCAN REPORT ---
EXAMINATION: CT HEAD WITHOUT CONTRAST CLINICAL INFORMATION: Dizziness. COMPARISON: 05/29/2016. TECHNIQUE: Contiguous helical images of the brain were obtained without IV contrast. Multiplanar reconstructions were performed. DLP: 612 mGy-cm. FINDINGS: There are no pathologic extra-axial fluid collections. The lateral, third, fourth ventricles are nondilated and concordant with the appearance of the sulci. There is no evidence for acute intraparenchymal hemorrhage or infarct. There is neither mass nor mass effect. There is no shift of midline structures. The paranasal sinuses and mastoid air cells are clear. There are no osseous lesions. IMPRESSION: No evidence for acute intracranial injury.
--- NOTE | 2017-05-25 18:25 | CT SCAN REPORT ---
EXAMINATION: CT ABDOMEN AND PELVIS WITHOUT CONTRAST CLINICAL INFORMATION: Nausea, vomiting. Decreased appetite. COMPARISON: 12/18/2014. TECHNIQUE: Contiguous axial thin section helical images of the abdomen and pelvis were performed without oral or IV contrast. The data set was reformatted in the coronal and sagittal planes and reviewed on an independent workstation. DLP: 414 mGy-cm. FINDINGS: The visualized lung bases are clear. The visualized portions of the heart are unremarkable. The liver is of normal size and attenuation without focal lesions nor intrahepatic biliary ductal dilation. The patient is status post cholecystectomy. Surgical clips are identified. Surgical chain sutures are identified in this patient status post gastric bypass. The spleen, pancreas, adrenal glands are unremarkable. Both kidneys are of normal size and attenuation without hydronephrosis or nephrolithiasis. There is no abdominal free fluid. There is neither mesenteric nor retroperitoneal lymphadenopathy. Normal unopacified loops of small and large bowel are identified. There is no pelvic free fluid. The urinary bladder is unremarkable. There is neither pelvic nor inguinal lymphadenopathy. Bone windows: Neither sclerotic nor lytic bone lesions are identified. IMPRESSION: No evidence for acute abdominal or pelvic inflammatory or infectious processes.
[2017-05-25 19:41] VITALS: BP 176/97
[2017-05-25] MEDS ORDERED: MECLIZINE HCL25 MG PO ×2 (19:43→21:36)
[2017-05-25] MEDS ORDERED: VALIUM5 M2 PO (19:43)
[2017-05-25] MEDS ORDERED: ZOFRAN ODT4 M1 SL (19:43)
[2017-05-25] MEDS ORDERED: BACTRIM DS TAB1 EACH PO (21:36)
== END 2017-05-25 19:47 ==
LOC: ERH 13:36
PROVIDERS: Physician Assistant Medical
DX: R42 Dizziness and giddiness (principal); N39.0 Urinary tract infection, site not specified
CPT/HCPCS: 74176; 81001; 87086; 93005; 93010; J3360

== ENCOUNTER 2017-11-27 19:11 | Emergency (ER) | payer OTHER ==
[~2017-11-27 19:11] MED LIST changes: +BACTRIM DS TAB1 EACH PO; -HUMALOG 100U100 U/ML SC; +HUMALOG100 UNIT/1 SC; +LEVOTHYROXINE137 MCG PO; +LEVSIN-SL0.125 MG SL; +MECLIZINE HCL25 MG PO; +ONDANSETRON HCL8 MG PO; +OXYCONTIN20 M1 PO; +PRAVACHOL40 M1 PO; -PRAVASTATIN40 MG PO; +VALIUM5 M2 PO; +VITAMIN D250000 UNIT PO; +ZOFRAN ODT4 M1 SL
--- NOTE | 2017-11-27 19:48 | ED PSYCHIATRIC COMPLAINT ---
History of Present Illness General Chief Complaint: Psychiatric Related Complaint Stated Complaint: BIBA ON PEER, ETOH, PSYCH EVAL, +SI Source: patient, police Exam Limitations: intoxication Vital Signs & Intake/Output Vital Signs & Intake/Output Vital Signs Date Time Temp Pulse Resp B/P B/P Pulse O2 O2 Flow FiO2 Mean Ox Delivery Rate 11/28 0908 98.2 88 20 142/62 96 Room Air 11/28 0507 97.3 85 20 97 11/28 0505 153/70 11/28 0012 20 11/27 1917 97.3 98 18 139/92 98 Room Air ED Intake and Output 11/28 0000 11/27 1200 Intake Total 0 Output Total Balance 0 Intake, Oral 0 Allergies Coded Allergies: No Known Allergies (01/27/16) Reconcile Medications Gabapentin 300 MG CAPSULE 1 CAP PO 5XDAILY NEUROPATHY/ANXIETY (Reported) Insulin Lispro (Humalog) 100 UNIT/ML CARTRIDGE 80 UNIT SC AD INSULIN PUMP ( Reported) Levothyroxine Sodium 137 MCG TABLET 1 TAB PO DAILY THYROID (Reported) Lisinopril 30 MG TABLET 1 TAB PO DAILY BP (Reported) Oxycodone Myristate (Xtampza ER) 27 MG CAP.SPR.12 1 TAB PO BID PAIN (Reported ) Pravastatin Sodium (Pravachol) 40 MG TABLET 1 TAB PO DAILY CHOLESTEROL ( Reported) Triage Nurses Notes Reviewed? yes HPI: Patient presents for evaluation at the request of the police because of suicide ideation. According to the police report the patient stated "it would all be better if I kill myself". The patient admits to alcohol intake this evening, she typically drinks twice per week. She states her called the police because she had been drinking too much. She states she kept calling his phone because she was upset at the fact that her girlfriend's brother and that was awake today. She was going to attend awake with her mother but admits that her mother gets her very angry at times. It appears that she for the comment related to poor relationship with her mother. She denies any prior suicide attempts. She states she has a disabled child and she would never actually kill herself. At this point she denies a physical complaints or need for detox. (Laurie CARO,Glenn Trinh) Past History Travel History Traveled to [place] past 21 day No Medical History Any Pertinent Medical History? 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 No (Glenn Sullivan MD) Review of Systems Review of Systems Constitutional: Reports: no symptoms. EENTM: Reports: no symptoms. Respiratory: Reports: no symptoms. Cardiovascular: Reports: no symptoms. GI: Reports: no symptoms. Genitourinary: Reports: no symptoms. Musculoskeletal: Reports: no symptoms. Skin: Reports: no symptoms. Neurological/Psychological: Reports: see HPI. Hematologic/Endocrine: Reports: no symptoms. Immunologic/Allergic: Reports: no symptoms. All Other Systems: Reviewed and Negative (Glenn Sullivan MD) Physical Exam Physical Exam General Appearance: see below Neurological/Psychiatric: see below Comments: General: Alert, calm, cooperative Head: Normocephalic, atraumatic Eyes: Normal inspection, not extinguishing nystagmus bilaterally, EOMI, PERRLA Ears: Normal inspection Nose: Normal inspection Throat: Moist mucosa Neck: Supple, no goiter Heart: Regular rate and rhythm, no murmurs rubs or gallops Lungs: Clear to auscultation bilaterally with good air entry Abdomen: Soft nontender nondistended, normal bowel sounds Chest: Nontender Extremities: Normal range of motion grossly, no cyanosis clubbing or edema of the upper extremities, no tremors present Neurologic: cranial nerves II through XII grossly intact, speech slightly slurred but otherwise appropriate Psychiatric: No apparent delusions or hallucinations, no pressured speech or thought blocking SAD PERSONS Done? deferred to crisis (Glenn Sullivan MD) Progress Differential Diagnosis: poor impulse control, intoxication, depression, anxiety, personality disorder Plan of Care: Orders Procedure Date/time Status Consistent Carbohydrate 1 11/28 B Active Continuous Observation Monitor 11/27 1946 Active URINE DRUG SCREEN FOR ER ONLY 11/27 1946 Complete ETHANOL 11/27 1946 Complete COMPREHENSIVE METABOLIC PANEL 11/27 1946 Complete CBC WITHOUT DIFFERENTIAL 11/27 1946 Complete ED CRISIS PSYCH CONSULT 11/27 1946 Active Current Medications Sig/Regine Start time Last Medication Dose Stop Time Status Admin Acetaminophen 1,000 MG ONCE ONE 11/28 1045 AC (Tylenol) 11/28 1046 Laboratory Tests 11/27/175: Urine Opiates Screen < 100, Methadone Screen < 40, Barbiturate Screen < 60, Ur Phencyclidine Scrn < 6.00, Amphetamines Screen < 100, U Benzodiazepines Scrn < 85, Urine Cocaine Screen < 50, Urine Cannabis Screen < 5.00 11/27/172049: Anion Gap 14, Estimated GFR > 60, BUN/Creatinine Ratio 12.0, Glucose 161 H, Calcium 9.6, Total Bilirubin 0.3, AST 33, ALT 50, Alkaline Phosphatase 116, Total Protein 7.1, Albumin 4.0, Globulin 3.1, Albumin/Globulin Ratio 1.3, CBC w Diff NO MAN DIFF REQ, RBC 4.82, MCV 80.7 L, MCH 25.9 L, MCHC 32.0 L, RDW 19.5 H, MPV 9.0, Gran % 57.0, Lymphocytes % 32.2, Monocytes % 8.3, Eosinophils % 1.4 , Basophils % 1.1, Absolute Granulocytes 3.2, Absolute Lymphocytes 1.8, Absolute Monocytes 0.5, Absolute Eosinophils 0.1, Absolute Basophils 0.1, Serum Alcohol 197.0 Comments: 11/27/2017 9:41:47 PM patient's nurse states that she is requesting something to help her sleep tonight. I have ordered trazodone. Awaiting a urine specimen as the patient has refused to provide one to this point. 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 (Laurie CARO,Glenn Trinh) Comments: 0919 [facility]PMP- 11/12/2017 1 11/08/2017 XTAMPZA ER 27 MG CAPSULE 40.0 20 AN THOMAS [id number] [facility] (0937) [address] 10/14/2017 1 10/13/2017 XTAMPZA ER 27 MG CAPSULE 60.0 30 AN THOMAS [id number] [facility] (7550) [address] 09/15/2017 1 09/14/2017 OXYCONTIN 15 MG TABLET 90.0 30 AN THOMAS [id number] [facility] (7550) [address] 08/16/2017 1 08/16/2017 OXYCONTIN 15 MG TABLET 90.0 30 AN THOMAS [id number] [facility] (7550) [address] 08/02/2017 1 08/02/2017 ALPRAZOLAM 0.5 MG TABLET 4.0 4 DM BOG [id number] CONNE (4264) [address] 07/17/2017 1 07/16/2017 OXYCONTIN 15 MG TABLET 90.0 30 KA JORDON [id number] [facility] (7550) [address] 06/17/2017 1 06/07/2017 HYDROMORPHONE 2 MG TABLET 120.0 30 AN THOMAS [id number] [facility] (7550) [address] 06/17/2017 1 06/07/2017 OXYCONTIN 20 MG TABLET 60.0 30 AN THOMAS [id number] [facility] (7550) [address] 05/25/2017 1 05/25/2017 DIAZEPAM 5 MG TABLET 10.0 5 ER AARON [id number] CONNE (4264) [address] 05/18/2017 1 05/18/2017 OXYCONTIN 20 MG TABLET 60.0 30 AN THOMAS [id number] [facility] (7550) [address] 05/18/2017 1 05/18/2017 NUCYNTA 50 MG TABLET 90.0 30 AN THOMAS [id number] [facility] (7550) [address] 04/16/2017 1 04/16/2017 NUCYNTA 50 MG TABLET 90.0 30 AN THOMAS [id number] [facility] (7550) [address] 04/16/2017 1 04/16/2017 OXYCONTIN 20 MG TABLET 60.0 30 AN THOMAS [id number] [facility] (7550) [address] 04/01/2017 1 03/31/2017 OXYCONTIN 20 MG TABLET 26.0 13 AN THOMAS [id number] [facility] (7550) [address] 03/24/2017 1 03/24/2017 MORPHINE SULF ER 30 MG TABLET 30.0 10 AN THOMAS [id number] [facility] (7550) [address] 03/11/2017 1 03/11/2017 ALPRAZOLAM 1 MG TABLET 15.0 3 RY DIL [id number] CONNE (4264) [address] 02/28/2017 1 02/19/2017 NUCYNTA 50 MG TABLET 120.0 30 AN THOMAS [id number] [facility] (7550) [address] 02/22/2017 1 02/19/2017 NUCYNTA ER 150 MG TABLET 60.0 30 AN THOMAS [id number] [facility] (7550) [address] 02/11/2017 1 02/11/2017 ALPRAZOLAM 1 MG TABLET 15.0 3 RY DIL [id number] CONNE (4264) [address] 01/29/2017 1 01/22/2017 NUCYNTA 50 MG TABLET 120.0 30 AN THOMAS [id number] [facility] (7550) [address] 01/25/2017 1 01/22/2017 NUCYNTA ER 150 MG TABLET 60.0 30 AN THOMAS [id number] [facility] (7550) [address] 01/11/2017 1 01/11/2017 ALPRAZOLAM 1 MG TABLET 15.0 3 RY DIL [id number] CONNE (4264) [address] 12/30/2016 1 12/30/2016 NUCYNTA 50 MG TABLET 120.0 30 MA THI [id number] [facility] (7550) [address] 12/28/2016 1 12/28/2016 ACETAMINOPHEN-COD #3 TABLET 12.0 3 HY ROSE MARIE [id number] CONNE (4264) [address] 12/20/2016 1 12/14/2016 ALPRAZOLAM 1 MG TABLET 15.0 30 RY DIL [id number] CONNE (4264) [address] 12/13/2016 1 12/13/2016 NUCYNTA 50 MG TABLET 80.0 20 MA BLE [id number] CONNE (9617) [address] ----- Patient is awake alert and oriented. Not intoxicated. Denies being suicidal homicidal. Requesting something for her pain. CT ACADEMY DIRECTOR confirms that the patient is on chronic pain medicine. We will start her on short acting medicines since we do not have patients on prescription. 1042 the patient has been cleared by crisis. The patient strongly denies being suicidal to me. She is asking for acetaminophen which she takes for pain as well. We will give her 1 dose. The patient is not intoxicated or suicidal. We will discharge her per their recommendation. (Gaurav CARO,[facility]) Departure Departure Disposition: STILL A PATIENT Condition: Stable Clinical Impression Primary Impression: Alcohol intoxication Qualifiers: Complication of substance-induced condition: uncomplicated Qualified Code: F10.920 - Alcohol use, unspecified with intoxication, uncomplicated Secondary Impressions: Suicide ideation Referrals: Oneida CARO,Monroe Sargent (PCP/Family) Departure Forms: Customer Survey General Discharge Information (Laurie CARO,Glenn Trinh)
[2017-11-27 21:07] LABS: ABSOLUTE BASOPHIL COUNT 0.1 /CUMM (0.0-0.2); ABSOLUTE EOSINOPHIL COUNT 0.1 /CUMM (0.0-0.7); ABSOLUTE GRANULOCYTE CT 3.2 /CUMM (1.4-6.5); ABSOLUTE LYMPH COUNT 1.8 /CUMM (1.2-3.4); ABSOLUTE MONOCYTE COUNT 0.5 /CUMM (0.10-0.60); BASOPHIL % 1.1 % (0.0-2.0); EOSINOPHIL % 1.4 % (0-5); HEMATOCRIT 38.9 % (37-47); MEAN CORPUSCULAR HGB 25.9 PG (27.0-31.0); MEAN CORPUSCULAR VOLUME 80.7 FL (81.0-99.0); PLATELET COUNT 339 /CUMM (130-400); RBC DISTRIBUTION WIDTH 19.5 % (11.5-14.5); RED BLOOD CELL CT 4.82 /CUMM (4.20-5.40); WHITE BLOOD CELL COUNT 5.6 /CUMM (4.8-10.8)
--- NOTE | 2017-11-27 23:11 | ED PSY CRISIS COLLATERAL NOTE ---
Collateral Note Collateral Note Family/Inform/Mitchell Contacts: 11/27/2017, 10:15PM This Bull Ladle Tender phoned and spoke to pt's , Monroe Grullon ) for collateral. Mr. Grullon reported that he and pt and pt's parents were supposed to go to the of a family friend today, however pt. had been using alcohol and was intoxicated and told Mr. Grullon that she was not going. Mr. Grullon said that he and pt's parents went to the anyway and when they returned pt. had locked the door so that he could not get in. Mr. Grullon said that pt. was also banging on the door and yelling. Pt's brother and sister -in-law - who live downstairs and are also the landlords - heard the noise and called the police. Mr. Grullon said that he did not hear pt. make any suicidal statements today, but said that she has made them in the past. Mr. Grullon said that he has no knowledge of pt. ever trying to kill herself. Mr. Grullon said that pt. is depressed and that he "thinks" pt. is on an antidepressant, but he does not know who is prescribing it. Mr. Grullon also reported that he and pt. were both in recovery from alcohol in the past, but that pt. began using alcohol again in the past year and that pt. has been drinking more heavily in the past month. Mr. Grullon said that he has talked to pt. about getting help for her alcohol problem and that he is especially concerned because pt is a diabetic. Mr. Grullon was informed by this clinician that pt. would stay in the ED overnight and be seen by Crisis in the morning.
[2017-11-28] MEDS ORDERED: XTAMPZA ER27 MG PO (03:57)
[2017-11-28 10:48] VITALS: BP 138/60
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
== END 2017-11-28 11:32 ==
LOC: ERH 19:11
PROVIDERS: Emergency Medicine
DX: F10.129 Alcohol abuse with intoxication, unspecified (principal); R45.851 Suicidal ideations; E11.9 Type 2 diabetes mellitus without complications; Z79.4 Long term (current) use of insulin
CPT/HCPCS: 80307; G0463; G0480